=== PATIENT | female | born 1980 | race Caucasian/White ===

== ENCOUNTER 2017-09-27 09:54 | Emergency (ER) | payer MEDICAID, SELFPAY ==
[2017-09-27 09:55] VITALS: BP 171/88; PULSE 85; RESP 17; TEMP 37.2; O2SAT 97; BMI 37.9
--- NOTE | 2017-09-27 10:14 | ED.VISSUMM ---
- ER Visit Summary Date of Service: 09/27/17 Chief Complaint: Foot pain History of Present Illness: The patient is a 37 F with right foot pain. This started a week ago when she stepped in a hole. She had x-rays 2 days later which were negative. 2 days ago, she was ambulating, full weightbearing, and the pain worsened. The pain is over her lateral right foot overlying the fifth metatarsal. No other injuries or complaints. Physical Examination: Hypertensive but otherwise vitals unremarkable. Inspection appears unremarkable. Skin normal. Tender to palpation of the fifth metatarsal proximally. Ankle and tib-fib unremarkable. Test Results: X-rays of the foot were obtained. Emergency Department Course and Treatment: Patient treated with an ice pack while awaiting results. X-rays were negative. Patient was instructed to rest, ice, elevate. She will use crutches for nonweightbearing and follow-up with her family doctor. She declined any pain medication and will use Tylenol at home. Treatment Plan: As above Disposition: Discharged Impression: Right foot pain This note was generated with [employer] dictation software. It may contain incorrect words, spelling, and punctuation that were not noted in review of the chart prior to signing ED Disposition - Plan for ED Patient: Chief Complaint: Lower Extremity Injury Referrals: Paco Cowart III, MD [Primary Care Provider] -
--- NOTE | 2017-09-27 10:30 | RAD_ITS ---
STUDY: X-RAY - RIGHT FOOT CLINICAL: Right foot pain after a fall. TECHNIQUE: 3 view(s) of the foot. COMPARISON: None. FINDINGS: There are posterior and plantar calcaneal enthesophytes. Normal visualized subtalar, talonavicular, calcaneocuboid, tarsal and tarsometatarsal articulations. Normal metatarsi. Normal metatarsophalangeal joint of the great toe. Normal tibial and fibular sesamoid bones. Normal interphalangeal joint of the great toe. Normal phalanges of the great toe. Normal second through fifth metatarsophalangeal joints. Normal interphalangeal joints and phalanges of the lesser toes. The soft tissue structures are unremarkable. RAD/Foot min 3 Views IMPRESSION: Calcaneal enthesopathy. No demonstrated fracture. Electronically Signed: Stephen Camarillo MD at 10:55 EDT Tel , Service support ,
--- NOTE | 2017-09-27 11:28 | ED.DEP ---
ED Disposition - Plan for ED Patient: Chief Complaint: Lower Extremity Injury Instructions: ED Sprain Foot Referrals: Paco Cowart III, MD [Primary Care Provider] -
[2017-09-27 12:03] VITALS: BP 130/65; PULSE 101; RESP 17; O2SAT 98
== END 2017-09-27 12:04 | disposition home or self-care (01) ==
PROVIDERS: Emergency Provider Emergency Medicine; Family Provider Family Medicine; PCP Family Medicine
DX: M25.571 Pain in right ankle and joints of right foot (principal); M79.7 Fibromyalgia; Z79.899 Other long term (current) drug therapy
CPT/HCPCS: 73630; 99282

== ENCOUNTER 2018-04-16 16:08 | Emergency (ER) | payer MEDICAID, SELFPAY ==
[2018-04-16 16:09] VITALS: BP 156/98; PULSE 91; RESP 18; TEMP 36; O2SAT 99; BMI 38.8
--- NOTE | 2018-04-16 17:14 | US_ITS ---
STUDY: ABDOMINAL ULTRASOUND - RIGHT UPPER QUADRANT REASON FOR VISIT: Female, 37 years old. Intermittent upper abdominal pain x 2 months. Patient states history of gastric ulcer. TECHNIQUE: Ultrasound evaluation of the right upper quadrant was performed with real-time and static ugarte-scale imaging. TECHNICAL QUALITY: Adequate. Examination limited by bowel gas. COMPARISON: None. FINDINGS: Liver: The liver measures 22.9 cm. There is increased echogenicity consistent with fatty infiltration. The bile ducts are within normal limits. There is hepatic color flow. The direction of portal flow is hepatopetal. There is no demonstrated mass lesion. Gallbladder: Borderline distended gallbladder, measuring 11.1 cm in length. The gallbladder wall measures 2 mm. There is a negative sonographic Hamilton's sign. There is no pericholecystic fluid. There are no gallstones. Common Bile Duct (C.B.D.): The common bile duct measures mm. Pancreas: Normal size of the visualized head and body of the pancreas. The tail the pancreas was obscured. There is normal echogenicity of the pancreas. There is no demonstrated pancreatic mass or cyst. Right Kidney: Normal size of the right kidney. The right kidney measures 12.2 x 5.1 x 3.9 cm. Normal renal cortex. The right cortex measures 1.4 cm. There is no demonstrated renal mass or cyst. There is no right hydronephrosis. US/Gallbladder IMPRESSION: 1. Hepatomegaly with steatosis. 2. No demonstrated gallstones or signs of cholecystitis. 3. Normal right kidney and visualized pancreas. Electronically Signed: Dennis Arias, at 18:16 EST , Service support ,
[2018-04-16] MEDS: Mag Hydrox/Al Hydrox/Simeth 30 ML UDC PO (17:21)
[2018-04-16 18:02] LABS: Absolute Lymphocyte Count 1.57 X10^3/ul (0.83-4.51); Basophil# 0.01 X10^3/uL; Basophil% 0.2 % (0-1); Eosinophil# 0.12 X10^3/uL; Eosinophils% 1.9 % (0-5); Hematocrit 39.2 % (37-47); Lymphocyte # 1.57 X10^3/ul (4.0); Lymphocyte % 24.8 % (19-41); Mean Corp Hgb Conc 33.2 g/gl (32-36); Mean Corpuscular Hgb 28.6 pg (27.0-32.0); Mean Corpuscular Volume 86.3 fL (81-99); Monocyte# 0.56 X10^3/uL; Monocyte% 8.9 % (0-10); Neutrophil # 4.04 X10^3/uL (2.7-7.7); Neutrophil % 63.9 % (47-70); Platelet Count 152 K/mm3 (150-450); RBC Distribution Width CV 12.3 % (11.6-14.6); RBC Distribution Width SD 38.3 fl (35.1-43.9); Red Blood Count 4.54 M/mm3 (4.2-5.4); White Blood Count 6.3 K/mm3 (4.4-11.0)
[2018-04-16 18:06] LABS: ALB/GLOB Ratio 1.1 RATIO (0.9-2.4); AST(SGOT) 28 U/L (15-37); Alanine Aminotransfer ALT/SGPT 36 U/L (13-56); Albumin, Serum 3.7 g/dL (3.2-5.0); Alkaline Phosphatase 76 U/L (45-117); Anion Gap 9 (5-15); BUN 11 mg/dL (7-18); BUN/Creat Ratio 17.5 RATIO (10-20); Calcium,Total 8.4 mg/dL (8.5-10.1); Chloride 106 mmol/L (98-107); Creatinine, Serum 0.63 mg/dL (0.55-1.02); EST Glomerular Filtration Rate 112 mL/min (>60); Est Glom Filt Rate - Afr Amer 136 mL/min (>60); Estimated Creatinine Clearance 108.95 ml/min; Globulin 3.4 g/dL (2.2-4.2); Glucose 90 mg/dL (74-106); Lipase 81 U/L (73-393); Potassium 3.7 mmol/L (3.5-5.1); Protein, Total 7.1 g/dL (6.4-8.2); Sodium Level 140 mmol/L (136-145)
[2018-04-16 18:21] LABS: POSITIVE COUNT NO; POSITIVE DIFFERENTIAL NO; POSITIVE MORPHOLOGY NO
--- NOTE | 2018-04-16 18:47 | ED.VISSUMM ---
- ER Visit Summary Date of Service: 04/16/18 Chief Complaint: Abdominal pain History of Present Illness: The patient is a 37 F who notes that she has had a cough for almost 2 months. Started with a URI. She also had some epigastric pain for months. She was told it is probably an ulcer and was started on omeprazole. Several weeks ago she had 2 episodes of vomiting couple episodes of diarrhea. Things got back to normal from that standpoint. No black stool. There is been no change in her pain with food. She states she has been under a lot of stress recently. No fevers. Physical Examination: Afebrile vital signs stable Gen: Well-nourished well-developed Head: Normocephalic atraumatic Eyes: Perrl EOMI ENT: TMs clear no rhinorrhea moist mucous membranes Neck: Supple no lymphadenopathy no JVD nontender CVS: Regular rate rhythm no murmurs normal S1-S2 Respiratory: No distress clear to auscultation bilaterally chest nontender Abdomen: Soft tender to palpation in the epigastrium and right upper quadrant nondistended normal bowel sounds no masses Back: Nontender Extremity: Nontender no edema Skin: Normal color no rash Neuro: alert orientated ?3 CN II-XII intact normal strength sensation reflexes gait cerebellar Psych: Normal affect normal mood Test Results: CBC CMP lipase and gallbladder ultrasound was normal. Emergency Department Course and Treatment: Patient received a GI cocktail with temporary improvement of her symptoms. I discussed the results of her testing with her. We will continue her omeprazole and adding Carafate. She is to follow-up with primary care discussed the possibility of EGD versus barium swallow. Impression: 1. Acute abdominal pain 2. Gastritis 3. Upper respiratory infection This note was generated with [employer] dictation software. It may contain incorrect words, spelling, and punctuation that were not noted in review of the chart prior to signing ED Disposition - Plan for ED Patient: Disposition: Home or Assisted Living Instructions: ED PUD Vs Gastritis Prescriptions: Sucralfate [Carafate] 1 gm PO 4X/DAY #56 tab Referrals: Paco Cowart III, MD [Primary Care Provider] - As soon as possible
[2018-04-16 18:54] VITALS: BP 130/84; PULSE 80; RESP 12; O2SAT 98
== END 2018-04-16 18:55 | disposition home or self-care (01) ==
PROVIDERS: Emergency Provider Emergency Medicine; Family Provider Family Medicine; PCP Family Medicine
DX: R10.9 Unspecified abdominal pain (principal); K29.70 Gastritis, unspecified, without bleeding; J06.9 Acute upper respiratory infection, unspecified; K21.9 Gastro-esophageal reflux disease without esophagitis; J45.909 Unspecified asthma, uncomplicated; F32.9 Major depressive disorder, single episode, unspecified; F41.9 Anxiety disorder, unspecified; M79.7 Fibromyalgia
CPT/HCPCS: 76705; 80053; 83690; 85025; 99284; A4216

== ENCOUNTER 2019-09-16 14:05 | Emergency (ER) | payer OTHER, SELFPAY ==
[2019-09-16 14:08] VITALS: BP 154/90; PULSE 105; RESP 16; TEMP 35.9; O2SAT 98; BMI 39.1
--- NOTE | 2019-09-16 14:18 | ED.VIS.GEN ---
History of Present Illness Chief Complaint: Complaint Narrative: 39-year-old female presents with dysuria and urethral irritation. She states that she was diagnosed with UTI at urgent care. Is unsure of the medication she was on but she believes it could be Bactrim. She states that they did send a urine culture but it was contaminated. Not had fever, nausea, vomiting. No GI complaints no vaginal complaints. Past Medical History - Allergies and Home Meds Allergies/Adverse Reactions: Allergies codeine Allergy (Verified 09/16/19 14:07) Other promethazine HCl [From Phenergan] Allergy (Verified 09/16/19 14:07) Other pseudoephedrine HCl [From Sudafed] Allergy (Verified 09/16/19 14:07) Other nitrofurantoin [From Macrobid] Adverse Reaction (Verified 09/16/19 14:08) PT UNSURE OF REACTION MIGRAINE DRUGS Allergy (Uncoded 09/16/19 14:07) Other RASH Primary Care Physician: Paco Cowart III, MD [Primary Care Provider] - Prior records reviewed: Yes Surgical History: noncontributory Lives: Spouse/ Significant Other Smoking Status: Never smoker Alcohol: None Drugs: None Review of Systems All systems negative except as indicated General: Denies: Chills Eyes: Denies: Visual changes - bilaterally, Diplopia ENT: Denies: Rhinorrhea, Sore throat Cardiovascular: Denies: Chest pain, Palpitations Respiratory: Denies: Dyspnea, Cough, Dyspnea on exertion Gastrointestinal: Denies: Abdominal pain, Nausea, Vomiting, Diarrhea, Melena, Hematochezia Genitourinary: Reports: Dysuria, Hematuria. Denies: Frequency Musculoskeletal: Denies: Back pain, Extremity Pain Skin: Denies: Rash, Wounds Neurological: Denies: Headache, Weakness, Numbness Physical Exam Vital Signs/Narrative: Vital Signs Temp Pulse Resp BP Pulse Ox 09/16/19 14:08 96.7 F L 105 H 16 154/90 H 98 Inital Vital Signs reviewed: Yes General: Well nourished, No Acute Distress Head: Normocephalic Eyes: Perrl, EOMI ENT: Moist mucous membranes, No rhinorrhea Neck: Supple, Nontender Cardiovascular: Regular rate, Regular rhythm, No murmurs Respiratory: No distress, CTA bilaterally, Chest nontender Abdomen: Soft, Nontender Skin: Normal color, No rash Neurological: Alert, Oriented x3, Normal Strength Psychological: Normal affect, Normal Mood ED Disposition - Plan for ED Patient: Disposition: Home or Assisted Living Instructions: ED CYSTITIS Female Adult Prescriptions: Cephalexin [Keflex] 500 mg PO Q12 #14 cap Transmission Status: Pending to [id number] Tramadol HCl [Ultram] 50 mg PO Q8H PRN PRN #12 tab PRN Reason: Pain/Inflammation Prescription Printed Ondansetron [Zofran Odt] 4 mg PO Q8H PRN PRN #10 tab PRN Reason: Nausea Transmission Status: Pending to [id number] Referrals: Paco Cowart III, MD [Primary Care Provider] -
[2019-09-16 14:22] LABS: Bacteria 0 SEEN /hpf (None Seen); Mucous, Urine 0 SEEN /hpf (<or=2+); Squamous Epithelial Cells - UA 0 SEEN /hpf (5-10)
[2019-09-16 14:26] LABS: Color, Urine Amber (Yellow); Glucose, Dipstick Normal (Normal); Ketone-Dipstick 5 mg/dl (Negative); Leukocyte Esterase-Dipstick 500 /ul (Negative); Nitrite-Dipstick Positive (Negative); Occult Blood-Urine 250 /ul (Negative); Protein-Dipstick 100 mg/dl (Negative); Specific Gravity, Urine 1.025 (1.002-1.030); Urine Clarity Cloudy (Clear); Urine Urobilinogen 4 mg/dl (Normal)
[2019-09-16 14:28] LABS: Urine Bilirubin Dipstick 1 mg/dL (Negative)
[2019-09-16 14:41] LABS: Red Blood Cells-Urine > 100 SEEN /hpf (0-5); White Blood Cells >100 SEEN /hpf (0-5)
[2019-09-16] MEDS: Cephalexin 250 MG Capsule 500 MG PO (15:43)
[2019-09-16 15:47] VITALS: BP 154/90; PULSE 105; RESP 16; TEMP 35.9; O2SAT 98
== END 2019-09-16 15:47 | disposition home or self-care (01) ==
PROVIDERS: Emergency Provider Student in an Organized Health Care Education/Training Program; PCP Family Medicine
DX: R30.0 Dysuria (principal); Z88.1 Allergy status to other antibiotic agents; Z88.8 Allergy status to other drugs, medicaments and biological substances
CPT/HCPCS: 81001; 87086; 87088; 87186; 99283

== ENCOUNTER 2023-11-03 17:41 | Emergency (ER) | payer OTHER, MEDICAID, SELFPAY ==
[2023-11-03 17:42] VITALS: BP 132/82; PULSE 89; RESP 18; TEMP 36.6; O2SAT 99
[2023-11-03 17:44] VITALS: BMI 34.2
--- NOTE | 2023-11-03 17:57 | EX.ED.VIS.PS ---
HPI HPI - Psych History of Present Illness Chief Complaint: Mental Health PFSH PFSH Home Medications ?Medication ?Instructions ?Recorded ?Last Taken ?Type albuterol sulfate 90 mcg/actuation 1 - 2 puff inhalation Q4H PRN PRN 02/21/15 Unknown Rx aerosol inhaler (Ventolin HFA) Wheezing ##1 metformin 500 mg tablet 500 mg PO BID 02/21/15 Unknown History sertraline 100 mg tablet 200 mg PO DAILY 02/21/15 Unknown History fluticasone propionate 220 2 puff IH DAILY 04/16/18 Unknown History mcg/actuation HFA aerosol inhaler (Flovent HFA) sucralfate 1 gram tablet 1 gm PO 4X/DAY #56 tabs 04/16/18 Unknown Rx ondansetron 4 mg disintegrating 4 mg PO Q8H PRN PRN Nausea #10 tabs 09/16/19 Unknown Rx tablet amitriptyline 10 mg tablet 10 mg PO QHS 11/03/23 Unknown History buspirone .ROUTE PRN 11/03/23 Unknown History glimepiride 2 mg tablet 2 mg PO DAILY 11/03/23 Unknown History lisinopril 10 mg tablet 10 mg PO DAILY 11/03/23 Unknown History pantoprazole 40 mg tablet,delayed 40 mg PO DAILY 11/03/23 Unknown History release Allergy/AdvReac Type Severity Reaction Status Date / Time codeine Allergy Other Verified 11/03/23 17:42 promethazine HCl (From Allergy Other Verified 11/03/23 17:42 Phenergan) pseudoephedrine HCl (From Allergy Other Verified 11/03/23 17:42 Sudafed) nitrofurantoin (From AdvReac PT UNSURE Verified 11/03/23 17:42 Macrobid) OF REACTION Social History Smoking Status: Never smoker EXAM Physical Exam Const Vital Signs: 11/03/23 17:42 11/03/23 20:21 Temperature 97.9 F Temperature Source Temporal Pulse Rate 89 80 Respiratory Rate 18 18 Blood Pressure 132/82 H 134/72 H Blood Pressure Mean 98 92 Pulse Ox 99 100 Oxygen Delivery Method Room Air Room Air MDM MDM MDM Narrative Medical decision making narrative: HISTORY OF PRESENT ILLNESS: 43-year-old female presents with depression and anxiety. She notes she does not have a plan to kill herself but says I do not want to live anymore. Denies prior history of suicide attempt. Denies any drug use. Denies alcohol abuse. Endorses nausea but denies abdominal pain. No chest pain, no shortness of breath. No palpitations. No leg swelling. No bleeding diathesis. No vomiting or diarrhea. No sick contacts cough or fever noted. REVIEW OF SYSTEMS: Pertinent positives: Anxious, depressed, suicidal ideation Pertinent negatives: Depression, anxiety PHYSICAL EXAM: Nursing triage notes reviewed, Vital signs reviewed Constitutional: please see mdm HENT: MMM Eyes: Pupils equal round and reactive to light, Extraocular muscles intact Neck: No stridor, no JVD, full neck ROM Lungs: Clear to auscultation, No wheezing or rales. No increased work of breathing, no conversational dyspnea, no accessory muscle use, no nasal flaring. No respiratory distress noted Heart: Regular rate and rhythm, No murmurs, No rubs and No gallops, 2+ distal pulses (radial, femoral, posterior tibial) in all extremities Abdomen: Soft, there is no tenderness, rigidity, rebound or guarding, no obvious peritoneal signs, no palpable pulsatile abdominal masses, no auscultated abdominal bruit : No CVAT Extremities: No edema Neuro: No focal neurological deficits, cranial nerves II through XII intact, 5/5 strength in all extremities. Intact sensation to light touch in all extremities, 2+ reflexes bilateral patella tendons. Normal gait. No ataxia. Skin: No rash or lesions noted MEDICAL DECISION MAKING: Chief Complaint: Depression, anxiety External records reviewed: Medications reviewed, sertraline, no recent psychiatric encounters noted in the chart. Factors affecting care: Depression, anxiety Social determinants of health: n history of mental health disorder (depression anxiety) History obtained from others: Friend Consults: Behavioral web content & social media manager [facility] Narrative: The patient was initially hemodynamically stable, afebrile and nontoxic-appearing. Exam without focal cardiopulmonary normalities. I treat the patient initially with Atarax and Reglan for nausea. Given the patient's report of not wanting to live anymore I begin medical clearance for further behavioral health evaluation. Medical clearance as follows: CBC without leukocytosis, severe anemia, no thrombocytopenia. BMP without evidence of significant electrolyte abnormalities, no anion gap, no acute kidney injury. Urine is negative Urine tox cream negative Serum alcohol negative The patient was medically cleared. Awaiting crisis, behavioral health evaluation and possible final decision for placement. Patient be signed out to p.m. physician pending crisis evaluation and final placement. The patient and/or family, caregivers express understanding. The patient and/or family, caregivers agrees with the plan. Shared decision making: I will have a discussion with the patient and or visitors regarding risk/benefits of further testing or admission. They will be made aware of of the risk/benefits inherent in this decision they will be given the opportunity to voice understanding. Total critical care time today provided was at least 0 minutes. This excludes separately billable procedures. Critical care time (if documented) is secondary to the patient having high probability of clinically significant/life threatening deterioration in the patient's condition which required my urgent intervention. Impression: 1. Depression 2. Anxiety 3. Suicide ideation Dispo: Pending crisis evaluation and potential placement This note was generated with [employer] dictation software. It may contain incorrect words, spelling, and punctuation that were not noted in review of the chart prior to signing. Lab Data Labs: Laboratory Results - last 24 hr 11/03/23 18:00 WBC 10.5 RBC 5.19 Hgb 14.6 Hct 43.5 MCV 83.8 MCH 28.1 MCHC 33.6 RDW Std Deviation 36.4 RDW Coeff of Teresa 12.0 Plt Count 198 MPV 10.8 Immature Gran % (Auto) 0.600 Neut % (Auto) 81.6 H Lymph % (Auto) 11.9 L Rabun % (Auto) 4.4 Eos % (Auto) 1.2 Baso % (Auto) 0.3 Absolute Neuts (auto) 8.5 H Absolute Lymphs (auto) 1.24 Nucleated RBC % 0 Sodium 135 L Potassium 3.5 Chloride 102 Carbon Dioxide 24.0 Anion Gap 9 BUN 11 Creatinine 0.74 Estim Creat Clear Calc 109.66 Est GFR (MDRD) Af Amer 109 Est GFR (MDRD) Non-Af 90 BUN/Creatinine Ratio 14.8 Glucose 235 H Calcium 9.2 Serum , Qual NEGATIVE Urine Opiates Screen NEGATIVE Urine Methadone Screen NEGATIVE Ur Barbiturates Screen NEGATIVE Ur Phencyclidine Scrn NEGATIVE Ur Amphetamines Screen NEGATIVE MDMA (Ecstasy) Screen NEGATIVE U Benzodiazepines Scrn NEGATIVE Urine Cocaine Screen NEGATIVE U Cannabinoids Screen NEGATIVE Ur Drug Screen Comment Ethyl Alcohol < 3.0 POC Glucose 272 H Discharge Plan Triage Chief Complaint: Mental Health ED Provider: Nick Anglin Dx/Rx/DC Orders Prescriptions: No Action metformin 500 MG tablet 500 mg PO BID sertraline 100 MG tablet 200 mg PO DAILY albuterol sulfate [Ventolin HFA] 1 INHALER inhaler 1 - 2 puff inhalation Q4H PRN PRN (Reason: Wheezing) Qty: 1 0RF Rx Instructions: WITH SPACER fluticasone propionate [Flovent HFA] 12 GM HFA aerosol inhaler 2 puff IH DAILY Patient Comments: INHALE 1 PUFF INSTRUCTED TWICE DAILY. sucralfate 1 GM tablet 1 gm PO 4X/DAY Qty: 56 0RF ondansetron 4 MG tablet 4 mg PO Q8H PRN PRN (Reason: Nausea) Qty: 10 0RF glimepiride 2 mg tablet 2 mg PO DAILY amitriptyline 10 mg tablet 10 mg PO QHS pantoprazole 40 mg tablet,delayed release (DR/EC) 40 mg PO DAILY lisinopril 10 mg tablet 10 mg PO DAILY buspirone [BuSpar] .ROUTE PRN Primary Care Provider: Carlos Desouza Referrals: Carlos Desouza MD [Primary Care Provider] - Print Language: Taiwanese
[2023-11-03 18:20] LABS: Bedside Glucose 272 mg/dL (74-106)
--- NOTE | 2023-11-03 18:20 | ED.RN ---
PATIENT PLACED IN GOWN, BELONGINGS CLEARED FROM ROOM AND LABELED. ROOM CLEARED. SITTER AT BEDSIDE
[2023-11-03 18:30] LABS: Absolute Lymphocyte Count 1.24 X10^3/uL (0.83-4.51); Absolute Neutrophil Count 8.5 X10^3/uL (2.0-7.7); Basophil# 0.03 X10^3/uL; Basophil% 0.3 % (0-1); Eosinophil# 0.13 X10^3/uL; Eosinophils% 1.2 % (0-5); Hematocrit 43.5 % (37-47); Hemoglobin 14.6 g/dL (12.0-15.0); Lymphocyte # 1.24 X10^3/ul (0.83-4.51); Lymphocyte % 11.9 % (19-41); Mean Corp Hgb Conc 33.6 g/dL (32-36); Mean Corpuscular Hgb 28.1 pg (27.0-32.0); Mean Corpuscular Volume 83.8 fL (81-99); Mean Platelet Vol. 10.8 fl (6.2-12.0); Monocyte# 0.46 X10^3/uL; Monocyte% 4.4 % (0-10); NRBC Flagged by Analyzer 0 % (0-5); Neutrophil # 8.54 X10^3/uL (2.7-7.7); Neutrophil % 81.6 % (47-70); Platelet Count 198 K/mm3 (150-450); RBC Distribution Width SD 36.4 fl (35.1-43.9); Red Blood Count 5.19 M/mm3 (4.2-5.4); White Blood Count 10.5 K/mm3 (4.4-11.0)
[2023-11-03] MEDS: hydrOXYzine 10 MG Tablet PO (18:39)
[2023-11-03] MEDS: Metoclopramide 5 MG TABLET PO (18:39)
--- NOTE | 2023-11-03 18:41 | CM.ED ---
Social Work: curing room worker faxed over referral packet to the Crisis Team to complete psychiatric assessment for patient due to depression, anxiety and suicidal ideation. Tiffany Suh, BRIMMING MACHINE OPERATOR, HYDRODYNAMICS PROFESSOR
[2023-11-03 18:49] LABS: Internal QC Validated? YES +Cl - CLEAR BKGD; Pregnancy, Serum, hCG Quali. NEGATIVE Negative; Record Kit Lot#, Serum Preg. 772476
[2023-11-03 18:52] LABS: Anion Gap 9 (5-15); BUN 11 mg/dL (7-18); BUN/Creat Ratio 14.8 RATIO (10-20); Calcium,Total 9.2 mg/dL (8.5-10.1); Chloride 102 mmol/L (98-107); Creatinine, Serum 0.74 mg/dL (0.55-1.02); EST Glomerular Filtration Rate 90 mL/min (>60); Est Glom Filt Rate - Afr Amer 109 mL/min (>60); Estimated Creatinine Clearance 109.66 ml/min; Glucose 235 mg/dL (74-106); Potassium 3.5 mmol/L (3.5-5.1); Sodium Level 135 mmol/L (136-145)
[2023-11-03 18:55] LABS: Alcohol, Blood (Medical)-Serum < 3.0 mg/dL
[2023-11-03 18:58] LABS: Amphetamine Urine VISTA NEGATIVE (<1000 ng/mL); Barbiturate Urine VISTA NEGATIVE (< 200 ng/mL); Benzodiazepine Urine VISTA NEGATIVE (< 200 ng/mL); Cocaine Urine VISTA NEGATIVE (< 300 ng/mL); Ecstacy Urine VISTA NEGATIVE (< 500 ng/mL); Methadone Urine VISTA NEGATIVE (< 300 ng/mL); PCP Urine VISTA NEGATIVE (< 25 ng/mL); THC Urine VISTA NEGATIVE (< 50 ng/mL); Vista UDS pH Range 6
[2023-11-03] MEDS: Sucralfate 1 GM Tablet PO (20:11)
[2023-11-03] MEDS: Lisinopril 10 MG Tablet PO (20:11)
[2023-11-03] MEDS: Acetaminophen 325 MG Tablet 650 MG PO (20:11)
[2023-11-03] MEDS: Sertraline 100 MG Tablet 200 MG PO (20:11)
[2023-11-03] MEDS: Amitriptyline 10 MG Tablet PO (20:12)
[2023-11-03 20:21] VITALS: BP 134/72; PULSE 80; RESP 18; O2SAT 100
== END 2023-11-03 22:26 | disposition home or self-care (01) ==
PROVIDERS: Emergency Provider Emergency Medicine; PCP Family Medicine; Visit Provider Emergency Medicine
DX: F41.9 Anxiety disorder, unspecified (principal); F32.A Depression, unspecified; R45.851 Suicidal ideations; R11.0 Nausea; Z79.899 Other long term (current) drug therapy
CPT/HCPCS: 80048; 80307; 82077; 82962; 84703; 85025; 99285

== ENCOUNTER 2024-11-02 07:40 | Emergency (ER) | payer OTHER, MEDICAID, SELFPAY ==
[2024-11-02 07:41] VITALS: BP 163/115; PULSE 120; RESP 22; TEMP 37; O2SAT 100
--- NOTE | 2024-11-02 08:00 | EX.ED.VIS.PS ---
HPI HPI - Psych History of Present Illness Chief Complaint: Mental Health Narrative Narrative: Chief complaint and HPI: 44-year-old female with past medical history of depression/anxiety not on medication, GERD, DM, HTN who presents for evaluation of depression. Patient states she has been off any antidepressant/anxiety medicine for the past year. She states she felt that it was not working in which she took herself off. She states that she does do neuro stimulation therapy. She does not follow with a counselor or a psychiatrist. She states that her depression symptoms include tearfulness, fatigue, low energy, decreased appetite. She states she thinks it is related to her hormones as she is perimenopausal but has an IUD. Patient states she does not want to live however she has no suicidal ideation or plan to kill herself. She states I would never kill myself due to my kids. She has no homicidal ideation. She denies any visual or auditory hallucinations. Review of systems: See HPI Medications: As listed on the chart Allergies: As listed on the chart PFSH: Per chart Vital signs: As listed on the chart. Reviewed. Physical exam: Gen: A&O x3, tearful and anxious head: Normocephalic, atraumatic Eyes: No sclera icterus, conjunctiva clear, PERRL, EOMI ENT: Moist mucous membranes Neck: Trachea midline, No JVD CV: RRR, no murmurs, no peripheral edema Resp: Lungs CTA BL, no w/r/c GI: Abd soft, non-distended, non-tender, no r/r/g Musc: Full ROM, no deformity Skin: Warm, dry Neuro: Alert, oriented, grossly intact, sensation intact Psych: Cooperative, tearful and anxious PFSH PFS Medical History GERD (gastroesophageal reflux disease) Diabetes Hypertension Depression Anxiety Home Medications ?Medication ?Instructions ?Recorded ?Last Taken ?Type albuterol sulfate 90 mcg/actuation 1 - 2 puff inhalation Q4H PRN PRN 02/21/15 Unknown Rx aerosol inhaler (Ventolin HFA) Wheezing ##1 metformin 500 mg tablet 500 mg PO BID 02/21/15 Unknown History sertraline 100 mg tablet 200 mg PO DAILY 02/21/15 Unknown History fluticasone propionate 220 2 puff IH DAILY 04/16/18 Unknown History mcg/actuation HFA aerosol inhaler (Flovent HFA) sucralfate 1 gram tablet 1 gm PO 4X/DAY #56 tabs 04/16/18 Unknown Rx ondansetron 4 mg disintegrating 4 mg PO Q8H PRN PRN Nausea #10 tabs 09/16/19 Unknown Rx tablet amitriptyline 10 mg tablet 10 mg PO QHS 11/03/23 Unknown History buspirone .ROUTE PRN 11/03/23 Unknown History glimepiride 2 mg tablet 2 mg PO DAILY 11/03/23 Unknown History lisinopril 10 mg tablet 10 mg PO DAILY 11/03/23 Unknown History pantoprazole 40 mg tablet,delayed 40 mg PO DAILY 11/03/23 Unknown History release Allergy/AdvReac Type Severity Reaction Status Date / Time codeine Allergy Other Verified 11/02/24 07:42 promethazine HCl (From Allergy Other Verified 11/02/24 07:42 Phenergan) pseudoephedrine HCl (From Allergy Other Verified 11/02/24 07:42 Sudafed) nitrofurantoin (From AdvReac PT UNSURE Verified 11/02/24 07:42 Macrobid) OF REACTION Surgical History (Updated 11/02/24 @ 07:56 by Kiah Matamoros) History of appendectomy Social History Smoking Status: Never smoker EXAM Physical Exam Const Vital Signs: 11/02/24 07:41 11/02/24 09:05 Temperature 98.6 F Temperature Source Oral Pulse Rate 120 H 93 Respiratory Rate 22 H 18 Blood Pressure 163/115 H Blood Pressure Mean 131 Pulse Ox 100 98 Oxygen Delivery Method Room Air Room Air MDM MDM MDM Narrative Medical decision making narrative: 44-year-old female with past medical history of depression/anxiety not on medication, GERD, DM, HTN who presents for evaluation of depression. Patient states she has been off any antidepressant/anxiety medicine for the past year. She states she felt that it was not working in which she took herself off. She states that she does do neuro stimulation therapy. She does not follow with a counselor or a psychiatrist. She states that her depression symptoms include tearfulness, fatigue, low energy, decreased appetite. Differential diagnosis includes but is not limited to depression and anxiety. Patient does not have suicidal ideation. No homicidal ideations. No psychosis. No visual or auditory hallucinations. On presentation she is very tearful and anxious in the room. I do not think any pink slip is needed at this time. Patient's symptoms will be treated with IM Ativan. Patient states she is unsure if she would like any voluntary inpatient psychiatric facility placement. Will consult nursing home social worker as I do think patient would benefit more from outpatient resources than inpatient. On reevaluation, patient's symptoms have improved with Ativan. She is no longer tearful. Patient was evaluated by social work. Patient was safety planned. forestry worker called her PCPs office who can see her tomorrow to start her on antidepressant. Patient is comfortable with this plan. Patient stable to discharge home. Return precautions explained. Impression: 1. Depression 2. Anxiety 3. History of both Discharge Plan Triage Chief Complaint: Mental Health ED Provider: Kailash Graff Dx/Rx/DC Orders Prescriptions: No Action metformin 500 MG tablet 500 mg PO BID sertraline 100 MG tablet 200 mg PO DAILY albuterol sulfate [Ventolin HFA] 1 INHALER inhaler 1 - 2 puff inhalation Q4H PRN PRN (Reason: Wheezing) Qty: 1 0RF Rx Instructions: WITH SPACER fluticasone propionate [Flovent HFA] 12 GM HFA aerosol inhaler 2 puff IH DAILY Patient Comments: INHALE 1 PUFF INSTRUCTED TWICE DAILY. sucralfate 1 GM tablet 1 gm PO 4X/DAY Qty: 56 0RF ondansetron 4 MG tablet 4 mg PO Q8H PRN PRN (Reason: Nausea) Qty: 10 0RF glimepiride 2 mg tablet 2 mg PO DAILY amitriptyline 10 mg tablet 10 mg PO QHS pantoprazole 40 mg tablet,delayed release (DR/EC) 40 mg PO DAILY lisinopril 10 mg tablet 10 mg PO DAILY buspirone [BuSpar] .ROUTE PRN Primary Care Provider: Carlos Desouza Referrals: Carlos Desouza MD [Primary Care Provider] - Print Language: [place] Timorese
[2024-11-02 09:05] VITALS: PULSE 93; RESP 18; O2SAT 98
[2024-11-02 12:03] VITALS: BP 115/75; PULSE 79; RESP 16; TEMP 37; O2SAT 96
--- NOTE | 2024-11-02 12:05 | CM.ED ---
Social work Patient stated not knowing whether or not patient wanted to go voluntarily to inpatient psychiatric placement. After conversation with SW, patient agreed to let SW call patient's PCP office to see when the next appointment could be to get patient seen for patient's concerns. Dr Desouza, patient's PCP, could see patient tomorrow 11/03/24 at 0900 for an appointment, which SW accepted on behalf of patient. Patient had earlier stated to SW that any appointment day and time would work for patient. SW passed this information along to patient and patient's doctor. This information was also added to patient's safety plan. No further needs identified by patient at this time. Emerald De La Rosa, STRATEGIC BUSINESS DEVELOPMENT, CLOTH FINISHING RANGE BACK TENDER
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
--- NOTE | 2024-11-03 10:52 | CM.ED ---
Social work SW called patient for safety plan follow up. Patient stated attending patient's doctor appointment this morning with patient's PCP. Patient stated being prescribed Prozac and Hydroxyzine. Patient stated willingly taking this medication due to feeling as if it will help patient be able to function through the days. Patient thanked this SW for help yesterday. SW reminded patient of ability to call Crisis or return to ED should symptoms worsen; patient agreeable. No further needs identified at this time. Emerald De La Rosa, SPECIALTY FINISHING UTILITY PERSON, ROTOR CASTING MACHINE SETUP OPERATOR
== END 2024-11-02 12:10 | disposition home or self-care (01) ==
PROVIDERS: Emergency Provider Surgery; PCP Family Medicine; Visit Provider Surgery
DX: F32.A Depression, unspecified (principal); E11.9 Type 2 diabetes mellitus without complications; K21.9 Gastro-esophageal reflux disease without esophagitis; F41.9 Anxiety disorder, unspecified; I10 Essential (primary) hypertension
CPT/HCPCS: 96372; 99284

== ENCOUNTER 2024-11-04 07:30 | Emergency (ER) | payer OTHER, MEDICAID, SELFPAY ==
[2024-11-04 07:31] VITALS: BP 148/85; PULSE 101; RESP 16; TEMP 36.3; O2SAT 98; BMI 34.0
--- NOTE | 2024-11-04 07:43 | EX.ED.VIS.PS ---
HPI HPI - Psych History of Present Illness Chief Complaint: Mental Health Detail of Chief Complaint: Anxiety and depression Narrative Narrative: Patient presents to the emergency department with complaint of anxiety and depression. She states that she was here 2 days ago and seen by social work/crisis and was offered voluntary admission for psychiatric stabilization which she refused at that time. Patient states that now she believes that she does need something done. She is having a hard time sleeping and she is crying all the time. She is having thoughts of not wanting to be here. Does not have a plan on harming herself and does not think she could actually follow through with anything because she does not want to do that to her kids and family. Denies auditory or visual hallucinations. Denies recent illness. She saw her primary care physician yesterday who started her on Prozac and hydroxyzine. Patient states that her mind just will not stop. [facility] Medical History (Updated 11/04/24 @ 14:[address] Curly Carlos, DO) GERD (gastroesophageal reflux disease) Diabetes Hypertension Depression Anxiety Home Medications ?Medication ?Instructions ?Recorded ?Last Taken ?Type albuterol sulfate 90 mcg/actuation 1 - 2 puff inhalation Q4H PRN PRN 02/21/15 Unknown Rx aerosol inhaler (Ventolin HFA) Wheezing ##1 metformin 500 mg tablet 500 mg PO BID 02/21/15 Unknown History sertraline 100 mg tablet 200 mg PO DAILY 02/21/15 Unknown History fluticasone propionate 220 2 puff IH DAILY 04/16/18 Unknown History mcg/actuation HFA aerosol inhaler (Flovent HFA) sucralfate 1 gram tablet 1 gm PO 4X/DAY #56 tabs 04/16/18 Unknown Rx ondansetron 4 mg disintegrating 4 mg PO Q8H PRN PRN Nausea #10 tabs 09/16/19 Unknown Rx tablet amitriptyline 10 mg tablet 10 mg PO QHS 11/03/23 Unknown History buspirone .ROUTE PRN 11/03/23 Unknown History glimepiride 2 mg tablet 2 mg PO DAILY 11/03/23 Unknown History lisinopril 10 mg tablet 10 mg PO DAILY 11/03/23 Unknown History pantoprazole 40 mg tablet,delayed 40 mg PO DAILY 11/03/23 Unknown History release Allergy/AdvReac Type Severity Reaction Status Date / Time codeine Allergy Other Verified 11/04/24 07:33 promethazine HCl (From Allergy Other Verified 11/04/24 07:33 Phenergan) pseudoephedrine HCl (From Allergy Other Verified 11/04/24 07:33 Sudafed) nitrofurantoin (From AdvReac PT UNSURE Verified 11/04/24 07:33 Macrobid) OF REACTION Surgical History (Updated 11/02/24 @ 07:56 by Kiah Matamoros) History of appendectomy Social History Smoking Status: Never smoker ROS ROS ED Review of Systems ROS Unobtainable: other Constitutional Constitutional ED: Reports lethargy; Denies chills, fever(s), sweats or weight loss Eyes Eyes: Denies blurry vision, change in vision or diplopia ENT ENT ED: Denies rhinorrhea or sore throat Cardiovascular Cardiovascular: Denies chest pain, orthopnea or racing heartbeat Respiratory/Chest Respiratory/Chest: Denies cough, dyspnea, dyspnea on exertion, orthopnea or sputum Gastrointestinal Gastrointestinal: Denies abdominal pain, diarrhea, nausea or vomiting Genitourinary Genitourinary ED: Denies dysuria, hematuria or urinary frequency Musculoskeletal Musculoskeletal: Denies arthralgias, back pain, myalgias or neck pain Integumentary Denies abscess, Abrasions or rash Neurologic Neurologic: Denies headache(s) or weakness Psychiatric Psychiatric: Reports anxiety and depression; Denies suicidal thoughts Endocrine Endocrinology: Denies polydipsia, polyphagia or polyuria Hematologic/Lymphatic Hematologic/Lymphatic: Denies easy bleeding, easy bruising or lymphadenopathy Allergic/Immunologic Allergic/Immunologic ED: Denies mouth swelling, tongue swelling or urticaria EXAM Physical Exam Const Vital Signs: 11/04/24 07:31 11/04/24 12:45 Temperature 97.4 F L Temperature Source Oral Pulse Rate 101 H 89 Respiratory Rate 16 18 Blood Pressure 148/85 H 124/78 H Blood Pressure Mean 106 93 Pulse Ox 98 98 Oxygen Delivery Method Room Air Positive well nourished and well developed General Appearance ED: well developed and NAD HEENT Reports TM's clear and moist mucous membranes normocephalic and atraumatic; Negative for trauma or tenderness Tympanic Membrane ED: Yes TM's clear Eyes PERRL and EOMs intact bilaterally General Eye ED: Negative for pale conjunctiva or scleral icterus Neck no lymphadenopathy, supple and no JVD General: Negative for tenderness Chest Wall inspection of chest normal and palpation of chest normal Chest: Negative for tenderness Resp normal respiratory effort and clear to auscultation bilaterally Effort and Inspection: Negative for respiratory distress or pain with movement Auscultation: Negative for rhonchi, wheezes or diminished lung sounds Cardio regular rate, regular rhythm, S1 normal heart sound, S2 normal heart sound and no murmurs Peripheral Pulses: pulses 2+ throughout GI normal to inspection, nondistended, normoactive bowel sounds, soft to palpation, non-tender, non-distended and no masses Back/Spine no CVA tenderness and no thoracic nor lumbar tenderness Extremity normal to inspection General Extremety ED: Negative for edema General Extremity: Negative for edema Neuro oriented x3, CN's II-XII intact bilaterally, no sensory deficits noted and gait normal Sensorium / Orientation: awake, alert, oriented to person, oriented to place and oriented to time Motor Exam: strength 5/5 throughout and strength abnormal Psych mental status grossly normal, denies hallucinations and denies homicidal ideation Psych Narrative: Tearful, anxious Skin no rashes or lesions noted and no wounds MDM MDM MDM Narrative Medical decision making narrative: Patient presents with anxiety and depression. Would voluntarily like to be admitted to psychiatric facility for stabilization. Initially seen by community mental health social worker and arrangements were made to [place]. Patient states that she did some research on the facility and is concerned about it and that it did not get good reviews and would like us to try to find another facility for her to go to. We had community mental health social worker back in the room to speak with her. While in the department patient received Ativan and had good symptom improvement with that. Care of patient turned over to evening physician awaiting further assessment by social work and attempted placement to another psychiatric facility. Lab Data Attestation: I reviewed the patient's lab results. Labs: Laboratory Results - last 24 hr 11/04/24 11/04/24 08:03 09:10 WBC 8.4 RBC 4.88 Hgb 14.3 Hct 41.4 MCV 84.8 MCH 29.3 MCHC 34.5 RDW Std Deviation 35.1 RDW Coeff of Teresa 11.5 L Plt Count 217 MPV 11.1 Immature Gran % (Auto) 0.400 Neut % (Auto) 71.2 H Lymph % (Auto) 22.2 Henderson % (Auto) 5.6 Eos % (Auto) 0.2 Baso % (Auto) 0.4 Absolute Neuts (auto) 6.0 Absolute Lymphs (auto) 1.87 Nucleated RBC % 0 Sodium 139 Potassium 3.9 Chloride 105 Carbon Dioxide 21.3 Anion Gap 13 BUN 9 Creatinine 0.57 L Estim Creat Clear Calc 135.30 Est GFR (MDRD) Non-Af 114 BUN/Creatinine Ratio 16.3 Glucose 169 H Calcium 9.1 Serum , Qual NEGATIVE Urine Opiates Screen NEGATIVE U Buprenorphine Qual NEGATIVE Ur Oxycodone Screen NEGATIVE Urine Methadone Screen NEGATIVE Urine Fentanyl Screen NEGATIVE Ur Barbiturates Screen NEGATIVE Ur Phencyclidine Scrn NEGATIVE Ur Amphetamines Screen NEGATIVE U Benzodiazepines Scrn NEGATIVE Urine Cocaine Screen NEGATIVE U Cannabinoids Screen PRESUMPTIVE POSITIVE Ethyl Alcohol < 10.1 Discharge Plan Triage Chief Complaint: Mental Health ED Provider: Curly Carlos Dx/Rx/DC Orders Clinical Impression: Anxiety, Depression Prescriptions: No Action metformin 500 MG tablet 500 mg PO BID sertraline 100 MG tablet 200 mg PO DAILY albuterol sulfate [Ventolin HFA] 1 INHALER inhaler 1 - 2 puff inhalation Q4H PRN PRN (Reason: Wheezing) Qty: 1 0RF Rx Instructions: WITH SPACER fluticasone propionate [Flovent HFA] 12 GM HFA aerosol inhaler 2 puff IH DAILY Patient Comments: INHALE 1 PUFF INSTRUCTED TWICE DAILY. sucralfate 1 GM tablet 1 gm PO 4X/DAY Qty: 56 0RF ondansetron 4 MG tablet 4 mg PO Q8H PRN PRN (Reason: Nausea) Qty: 10 0RF glimepiride 2 mg tablet 2 mg PO DAILY amitriptyline 10 mg tablet 10 mg PO QHS pantoprazole 40 mg tablet,delayed release (DR/EC) 40 mg PO DAILY lisinopril 10 mg tablet 10 mg PO DAILY buspirone [BuSpar] .ROUTE PRN Primary Care Provider: Carlos Desouza Referrals: Carlos Desouza MD [Primary Care Provider, Family Practice] Print Language: [place]
--- NOTE | 2024-11-04 08:07 | ED.RN ---
pt. gave her mother her wallet to take home. All other belongings placed in bins.
--- NOTE | 2024-11-04 08:10 | ED.RN ---
Dr. Carlos confirmed pt. does not need a sitter.
[2024-11-04 08:15] LABS: Hematocrit 41.4 % (37-47); Hemoglobin 14.3 g/dL (12.0-15.0); Immature Granulocytes Count 0.030 X10^3/uL (0.0-0.0); Mean Corp Hgb Conc 34.5 g/dL (32-36); Mean Corpuscular Volume 84.8 fL (81-99); Mean Platelet Vol. 11.1 fl (6.2-12.0); NRBC Flagged by Analyzer 0 % (0-5); Platelet Count 217 K/mm3 (150-450); RBC Distribution Width CV 11.5 % (11.6-14.6); RBC Distribution Width SD 35.1 fl (35.1-43.9); Red Blood Count 4.88 M/mm3 (4.2-5.4); White Blood Count 8.4 K/mm3 (4.4-11.0)
[2024-11-04 08:37] LABS: Internal QC Validated? YES +Cl - CLEAR BKGD; Pregnancy, Serum, hCG Quali. NEGATIVE Negative
[2024-11-04 08:38] LABS: Record Kit Lot#, Serum Preg. 0000964736
[2024-11-04 08:42] LABS: Alcohol, Blood (Medical)-Serum < 10.1 mg/dL (<=10.0)
[2024-11-04 08:45] LABS: Anion Gap 13 (5-15); BUN 9 mg/dL (4-19); BUN/Creat Ratio 16.3 RATIO (10-20); Calcium,Total 9.1 mg/dL (7.6-11.0); Carbon Dioxide 21.3 mmol/L (21.0-32.0); Chloride 105 mmol/L (98-108); Estimated Creatinine Clearance 135.30 ml/min (50-250); Glucose 169 mg/dL (70-99); Potassium 3.9 mmol/L (3.3-5.1)
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
[2024-11-04 09:59] LABS: Barbiturate Urine NEGATIVE (< 200 ng/mL); Benzodiazepine Urine NEGATIVE (< 200 ng/mL); PCP Urine NEGATIVE (< 25 ng/mL); THC Urine PRESUMPTIVE POSITIVE (< 50 ng/mL)
--- NOTE | 2024-11-04 10:38 | CM.ED ---
Social work After SW assessment, patient's mother Jeannie asked if patient could be transported via private car to wherever patient would be going. Jeannie stated willingness to do so rather than waiting on an ambulance; patient in agreement. SW checked with doctor who was agreeable due to patient being voluntary. Patient stated patient's children, 17 and 15 years old, will be cared for by patient's mother and ex- during patient's inpatient stay. Patient's mother stated the children would be cared for well. 1005: Called [facility] (ph: ) and beds available. Explained that this patient was voluntary, so [facility] faxed voluntary form to this SW to be added to referral packet. Patient signed voluntary form that was included and packet faxed (f: ). 1200: Called [facility] back and had to leave a VM regarding patient's status. SW also provided ED front desk auxiliary number to call if unable to reach SW. Patient and patient's mother updated on status. Patient expressed concern about going to [facility]. SW expressed needing to hand this patient's case off to Crisis due to shift ending if not hearing back before long. 2075: Called [facility] and spoke with Tan (ph: [phone]). Provided handoff and faxed referral packet (f: ). Emerald De La Rosa, SIMULATION ENGINEER, SENIOR J2EE DEVELOPER
[2024-11-04 12:45] VITALS: BP 124/78; PULSE 89; RESP 18; O2SAT 98
--- NOTE | 2024-11-04 14:11 | PCA ---
CALLED [facility] @ [phone] REACHED OUT TO [facility]
--- NOTE | 2024-11-04 15:29 | ED.RN ---
Ruby out of room after speaking with patient. States we will continue to work toward [facility].
[2024-11-04 16:00] VITALS: BP 126/58; PULSE 78; RESP 12; TEMP 36.6; O2SAT 97
--- NOTE | 2024-11-04 19:29 | ED.RN ---
Patient informed we are still at a stand still. Maninder from crisis notified patient requesting to leave tonight and be admitted tomorrow at [facility]. Patient understood. patient states I am just worried about my ativan. Pt states Dr. Wilson said she would give me 2 ativan to go home with but the pharmacy will be closed by then. This RN states please do not worry about that. We have an after hours pharmacy here if you need prescriptions filled. Pt states oh, ok. Thank you. That makes me feel better! Pt states she has no further questions at this time.
[2024-11-04 20:00] VITALS: BP 125/82; PULSE 78; O2SAT 99
--- NOTE | 2024-11-04 20:24 | ED.RN ---
Per Dr. Wilson, patient is ok to have her personal belongings back. pt given information for [facility] direct admission.
[2024-11-04 21:03] VITALS: BP 125/82; PULSE 78; RESP 12; TEMP 36.6; O2SAT 99
== END 2024-11-04 21:04 | disposition home or self-care (01) ==
PROVIDERS: Emergency Provider Emergency Medicine; PCP Family Medicine; Visit Provider Emergency Medicine
DX: F41.9 Anxiety disorder, unspecified (principal); E11.9 Type 2 diabetes mellitus without complications; I10 Essential (primary) hypertension; F32.A Depression, unspecified; K21.9 Gastro-esophageal reflux disease without esophagitis
CPT/HCPCS: 80048; 80307; 82077; 84703; 85025; 99282

== ENCOUNTER 2024-11-12 10:15 | Emergency (ER) | payer OTHER, MEDICAID, SELFPAY ==
[2024-11-12 10:15] VITALS: BP 135/93; PULSE 112; RESP 14; TEMP 36.1; O2SAT 98; BMI 35.2
--- NOTE | 2024-11-12 11:17 | EX.ED.DYSGE1 ---
HPI History of Present Illness Chief Complaint: Anxiety Informant: patient Onset/Context/Timing Onset: Days (6) Context: Gradual Onset Timing: Continuous Quality: Insomnia, fatigue Location: Generalized Worsened by: Nothing Relieved by: Nothing Narrative Narrative: Patient presents with insomnia for the past 6 days. Patient states she feels fatigued but is unable to sleep. Patient states she is starting to feel anxious. Patient denies any suicidal or homicidal ideations. Patient states she is having some nausea and vomiting but is only having dry heaves. Patient denies any hematemesis or coffee-ground emesis. Patient denies any diarrhea, melena, or hematochezia. Patient states she was recently started on anxiety and depression medications but these did not seem to be helping. Patient denies any fevers or chills. [facility] Medical History GERD (gastroesophageal reflux disease) Diabetes Hypertension Depression Anxiety Home Medications ?Medication ?Instructions ?Recorded ?Last Taken ?Type albuterol sulfate 90 mcg/actuation 1 - 2 puff inhalation Q4H PRN PRN 02/21/15 Unknown Rx aerosol inhaler (Ventolin HFA) Wheezing ##1 lisinopril 10 mg tablet 10 mg PO DAILY 11/03/23 11/03/24 History fluoxetine 20 mg capsule 20 mg PO QPM 11/04/24 Unknown History lorazepam 1 mg tablet (Ativan) 1 mg PO DAILY PRN anxiety #1 TAB 11/04/24 Unknown Rx Allergy/AdvReac Type Severity Reaction Status Date / Time codeine Allergy Other Verified 11/12/24 10:16 promethazine HCl (From Allergy Other Verified 11/12/24 10:16 Phenergan) pseudoephedrine HCl (From Allergy Other Verified 11/12/24 10:16 Sudafed) nitrofurantoin (From AdvReac PT UNSURE Verified 11/12/24 10:16 Macrobid) OF REACTION Surgical History History of appendectomy Social History Smoking Status: Never smoker ROS ROS ED Constitutional Constitutional ED: Denies chills or fever(s) Eyes Eyes: Denies blurry vision or change in vision ENT ENT ED: Denies rhinorrhea or sore throat Cardiovascular Cardiovascular: Denies chest pain or palpitations Respiratory/Chest Respiratory/Chest: Denies cough or dyspnea Gastrointestinal Gastrointestinal: Denies nausea or vomiting Genitourinary Genitourinary ED: Denies dysuria or hematuria Musculoskeletal Musculoskeletal: Denies back pain or neck pain Integumentary Denies abscess or rash Neurologic Neurologic: Reports headache(s); Denies weakness Psychiatric Psychiatric: Reports anxiety; Denies suicidal ideation or suicidal thoughts Allergic/Immunologic Allergic/Immunologic ED: Denies mouth swelling or urticaria EXAM Physical Exam Const Vital Signs: 11/12/24 10:15 11/12/24 12:05 Temperature 97 F L Temperature Source Temporal Pulse Rate 112 H 83 Respiratory Rate 14 19 H Blood Pressure 135/93 H 139/91 H Blood Pressure Mean 107 107 Pulse Ox 98 99 Oxygen Delivery Method Room Air Room Air Positive well nourished and well developed General Appearance ED: well developed and NAD HEENT Reports moist mucous membranes Neck supple and no JVD Resp normal respiratory effort and clear to auscultation bilaterally Cardio regular rate and regular rhythm GI non-tender and non-distended Palpation: soft Neuro oriented x3, CN's II-XII intact bilaterally and no sensory deficits noted Sensorium / Orientation: alert Motor Exam: strength 5/5 throughout Psych mental status grossly normal Mood & Affect: anxious MDM MDM MDM Narrative Medical decision making narrative: Differential diagnosis includes but is not limited to anxiety, electrolyte abnormality, urinary tract infection, , cholecystitis, cholelithiasis, hepatitis, viral illness, and dehydration. CBC will be obtained to assess for leukocytosis and anemia. Comprehensive metabolic profile will be obtained to assess for hepatic function, renal function, and electrolyte abnormality. Urinalysis will be obtained to assess for urinary tract infection and hematuria. Serum hCG will be obtained to assess for . COVID-19, influenza, and RSV PCR will be obtained to assess for viral illness. History & Record Review Additional record(s) reviewed:: Prior ED visit and Prior labs Lab Data Attestation: I reviewed the patient's lab results. Lab results narrative: CBC was reviewed. There is a mild leukocytosis of 12.7. Hemoglobin was slightly elevated at 16.9. The remainder is within normal limits. Comprehensive metabolic profile was reviewed and was within normal limits. Serum hCG was reviewed and was negative. Urinalysis was reviewed. There is no evidence of urinary tract infection or hematuria. Labs: Laboratory Results - last 24 hr 11/12/24 11:48 WBC 12.7 H RBC 5.64 H Hgb 16.9 H Hct 47.0 MCV 83.3 MCH 30.0 MCHC 36.0 RDW Std Deviation 34.3 L RDW Coeff of Teresa 11.4 L Plt Count 285 MPV 10.8 Immature Gran % (Auto) 0.500 Neut % (Auto) 69.7 Lymph % (Auto) 22.8 [place] % (Auto) 6.5 Eos % (Auto) 0.2 Baso % (Auto) 0.3 Absolute Neuts (auto) 8.8 H Absolute Lymphs (auto) 2.89 Nucleated RBC % 0 Sodium 138 Potassium 3.9 Chloride 102 Carbon Dioxide 23.0 Anion Gap 13 BUN 8 Creatinine 0.57 L Estim Creat Clear Calc 137.77 Est GFR (MDRD) Non-Af 114 BUN/Creatinine Ratio 14.0 Glucose 146 H Calcium 9.6 Total Bilirubin 0.69 AST 17 ALT 23 Alkaline Phosphatase 98 Total Protein 7.7 Albumin 4.7 Globulin 3.0 Albumin/Globulin Ratio 1.5 Serum , Qual NEGATIVE Urine Color Yellow Urine Clarity Sl. Cloudy Urine pH 7.0 Ur Specific [place] 1.010 Urine Protein 15 H Urine Glucose (UA) Normal Urine Ketones Negative Urine Occult Blood Negative Urine Nitrite Negative Urine Bilirubin Negative Urine Urobilinogen Normal Ur Leukocyte Esterase 25 H Urine RBC 0 SEEN Urine WBC 0-5 SEEN Ur Squamous Epith Cells 0-5 SEEN Urine Bacteria 2+ Urine Mucus 0 SEEN Treatment and Re-Evaluation :: Patient was given IV fluids, Reglan, and Benadryl. Patient was feeling better on reevaluation. Patient was sleeping. Patient was instructed to use [id number] Benadryl at nighttime to help with sleep. Patient was instructed to follow-up with her primary care physician in 5 to 7 days. Patient was instructed to return if worse in any way. Patient understood and was agreeable with the plan. All questions were answered. Discharge Plan Triage Chief Complaint: Anxiety ED Provider: Jung Pal Dx/Rx/DC Orders Clinical Impression: Insomnia, Anxiety Instructions: ED Insomnia Prescriptions: No Action albuterol sulfate [Ventolin HFA] 1 INHALER inhaler 1 - 2 puff inhalation Q4H PRN PRN (Reason: Wheezing) Qty: 1 0RF Rx Instructions: WITH SPACER lisinopril 10 mg tablet 10 mg PO DAILY fluoxetine 20 mg capsule 20 mg PO QPM lorazepam [Ativan] 1 mg tablet 1 mg PO DAILY PRN (Reason: anxiety) Qty: 1 0RF Primary Care Provider: Carlos Desouza Referrals: Carlos Desouza MD [Primary Care Provider, Family Practice] - 5-7 Days Print Language: Macedonian Disposition Disposition: Home, Self Care
[2024-11-12] MEDS: 0.9% Normal Saline (1000mL) 1,000 ML 1000 ML IV (11:52)
[2024-11-12] MEDS: DiphenhydrAMINE 50 MG/ML Syringe 25 MG IV (11:52)
[2024-11-12 12:04] LABS: Mucous, Urine 0 SEEN /hpf (<or=2+); Red Blood Cells-Urine 0 SEEN /hpf (0-5)
[2024-11-12 12:05] VITALS: BP 139/91; PULSE 83; RESP 19; O2SAT 99
[2024-11-12 12:10] LABS: Hematocrit 47.0 % (37-47); Hemoglobin 16.9 g/dL (12.0-15.0); Immature Granulocytes Count 0.060 X10^3/uL (0.0-0.0); Mean Corp Hgb Conc 36.0 g/dL (32-36); Mean Corpuscular Volume 83.3 fL (81-99); Mean Platelet Vol. 10.8 fl (6.2-12.0); NRBC Flagged by Analyzer 0 % (0-5); Platelet Count 285 K/mm3 (150-450); RBC Distribution Width CV 11.4 % (11.6-14.6); RBC Distribution Width SD 34.3 fl (35.1-43.9); Red Blood Count 5.64 M/mm3 (4.2-5.4); White Blood Count 12.7 K/mm3 (4.4-11.0)
[2024-11-12 12:11] LABS: Color, Urine Yellow (Yellow); Glucose, Dipstick Normal (Normal); Ketone-Dipstick Negative (Negative); Leukocyte Esterase-Dipstick 25 /ul (Negative); Nitrite-Dipstick Negative (Negative); Occult Blood-Urine Negative /ul (Negative); Protein-Dipstick 15 mg/dl (Negative); Specific Gravity, Urine 1.010 (1.002-1.030); Urine Bilirubin Dipstick Negative (Negative)
[2024-11-12 12:17] LABS: Squamous Epithelial Cells - UA 0-5 SEEN /hpf (5-10)
[2024-11-12 12:37] LABS: AST(SGOT) 17 U/L (<=31); Alanine Aminotransfer ALT/SGPT 23 U/L (<=34); Albumin, Serum 4.7 g/dL (3.5-5.0); Alkaline Phosphatase 98 U/L (35-104); Anion Gap 13 (5-15); BUN 8 mg/dL (4-19); BUN/Creat Ratio 14.0 RATIO (10-20); Calcium,Total 9.6 mg/dL (7.6-11.0); Carbon Dioxide 23.0 mmol/L (21.0-32.0); Chloride 102 mmol/L (98-108); Estimated Creatinine Clearance 137.77 ml/min (50-250); Globulin 3.0 g/dL (2.2-4.2); Glucose 146 mg/dL (70-99); Potassium 3.9 mmol/L (3.3-5.1)
[2024-11-12 12:42] LABS: Internal QC Validated? YES +Cl - CLEAR BKGD; Pregnancy, Serum, hCG Quali. NEGATIVE Negative; Record Kit Lot#, Serum Preg. 0000964736
== END 2024-11-12 13:58 | disposition home or self-care (01) ==
PROVIDERS: Emergency Provider Emergency Medicine; PCP Family Medicine; Visit Provider Emergency Medicine
DX: G47.00 Insomnia, unspecified (principal); E11.9 Type 2 diabetes mellitus without complications; F41.9 Anxiety disorder, unspecified; I10 Essential (primary) hypertension; R51.9 Headache, unspecified
CPT/HCPCS: 80053; 81001; 84703; 85025; 87631; 96361; 96374; 96375; 99284; A4216

== ENCOUNTER → 2024-11-25 | Outpatient (CLI) | payer OTHER, MEDICAID, SELFPAY ==
[2024-11-25 12:17] LABS: Hematocrit 43.5 % (37-47); Hemoglobin 14.9 g/dL (12.0-15.0); Immature Granulocytes Count 0.030 X10^3/uL (0.0-0.0); Mean Corp Hgb Conc 34.3 g/dL (32-36); Mean Corpuscular Volume 84.3 fL (81-99); Mean Platelet Vol. 12.5 fl (6.2-12.0); NRBC Flagged by Analyzer 0 % (0-5); Platelet Count 193 K/mm3 (150-450); RBC Distribution Width CV 11.4 % (11.6-14.6); RBC Distribution Width SD 34.8 fl (35.1-43.9); Red Blood Count 5.16 M/mm3 (4.2-5.4); White Blood Count 9.9 K/mm3 (4.4-11.0)
[2024-11-25 13:10] LABS: AST(SGOT) 19 U/L (<=31); Alanine Aminotransfer ALT/SGPT 28 U/L (<=34); Albumin, Serum 4.6 g/dL (3.5-5.0); Alkaline Phosphatase 75 U/L (35-104); Anion Gap 14 (5-15); BUN 10 mg/dL (4-19); BUN/Creat Ratio 16.5 RATIO (10-20); Calcium,Total 9.6 mg/dL (7.6-11.0); Carbon Dioxide 22.3 mmol/L (21.0-32.0); Chloride 102 mmol/L (98-108); Ferritin 330 ng/mL (22-378); Follicle Stimulating Hormone 4.5 mIU/mL; Globulin 2.8 g/dL (2.2-4.2); Glucose 147 mg/dL (70-99); Iron 116 ug/dL (50-170); Potassium 4.1 mmol/L (3.3-5.1); T3 Total - Triiodothyronine 1.25 ng/mL (0.80-2.00); T4 Total, Thyroxin 9.1 ug/dL (4.8-13.9); Vitamin D,25 Hydroxy 28.1 ng/mL (30-100)
[2024-11-26 04:07] LABS: PROGESTERONE 0.6 ng/mL (.)
[2024-11-30 00:07] LABS: Estrogen, Total, Serum 241 pg/mL (.)
== END | disposition home or self-care (01) ==
LOC: VSLAB 10:28
PROVIDERS: PCP Family Medicine; Visit Provider Nurse Practitioner
DX: F41.1 Generalized anxiety disorder (principal)
CPT/HCPCS: 36415; 80053; 82306; 82672; 82728; 83001; 83002; 83036; 83540; 84144; 84403; 84436; 84443; 84480; 85025

== ENCOUNTER 2024-12-01 08:00 | Outpatient (RCR) | payer MEDICAID, SELFPAY ==
--- NOTE | 2024-12-01 09:00 | BH.SGPN.GN ---
Behaviors/Verbalizations/Mental Status: [] Eye contact is good. Motor activity is appropriate. Appearance is casual. Speech is Appropriate. Mood is anxious and depressed. Affect is congruent. Thoughts are linear and logical. No evidence of psychosis. Tearful Client Response/Progress/Benefit: [] Pt participated when prompted. Attentive. This was pt?s first day in IOP level of care. Tearful as she discussed reasons for entering IOP. Reports ?severe? anxiety stating ? It?s the lowest I?ve ever been?. Reports being ?scared? her anxiety won?t ever improve. ? I?m ready? to make changes. No progress noted. Group emphasized with struggles and provided feedback/suggestions for her first day which was beneficial. Will continue in IOP to prevent decompensation, decrease anxiety, increase healthy coping, and improve functioning. Narrative Note: []
--- NOTE | 2024-12-01 09:34 | BH.COMM_ITS ---
Communication Note Communication with Client Communication Note: Met with pt to complete initial paperwork. Discussed case with Dr. Bangura and pt will be admitted to [facility] tx with a diagnosis of F41.1 ROBERT.
--- NOTE | 2024-12-01 09:34 | BH.COMM ---
Communication Note Communication with Client Communication Note: Met with pt to complete initial paperwork. Discussed case with Dr. Bangura and pt will be admitted to [facility] tx with a diagnosis of F41.1 ROBERT.
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
--- NOTE | 2024-12-01 09:35 | BH.MTP_ITS ---
Master Treatment Plan Patient Information Program Physician:: Dr. Brody Bangura Primary Therapist:: Naye LIANG Psychiatric Diagnoses Psychiatric Diagnoses:: ROBERT; MDD, recurrent, severe, without psychosis Diagnosis Code(s):: F 41.1 Estimated LOS Estimated LOS (in weeks):: 6 Problem/Goal #1 Problem/Goal #1 Stated Goal:: Will reduce anxiety and panic symptoms through increasing emotional regulation and distress tolerance skills Description of Barriers: Pt recently lost her job as pt's anxiety became too severe and was impacting pt's ability to function. Pt is anxious about losing her housing because of job loss and tight finances. Pt has a history to non-responsiveness to medications. Functional Impact: Pt is a 44-year-old woman with a history of ROBERT and MDD. Pt has one previous psychiatric admission to [facility] from 11/04/24-11/09/24 due to significant anxiety and thoughts of . Pt was referred to [facility] tx due to her worsening anxiety, depression, and functioning. At admission to [facility], pt experienced constant anxiety, poor appetite, low energy, lack of motivation, panic, avoidance, crying spells, worthlessness, hopelessness, and poor sleep. Pt reports her anxiety is so high she is exhausted but I can't turn off my brain to sleep. Pt is not able to complete her ADLs and she is fearful of being at home. Pt's symptoms are impacting her overall functioning and relationships. Goal Relevant Strengths/Supports: Pt is established with outpatient psychiatry and pt has close supports in her life who are helping pt. Objectives Objective #1: Stated Objective: Pt will increase ability to manage stressors and anxiety by gaining 2-3 distress tolerance skills. Interventions: Through group and individual therapy, pt will learn various coping skills to help manage stress and anxiety. Therapist will utilize DBT distress tolerance skills to increase awareness and give pt tools to more effectively manage anxiety. Therapist will provide psychoeducation on emotional regulation and help pt identify unhealthy coping skills he wants to change. Discharge Criteria: Pt will have accomplished this goal when can report improved ability to manage stressors and identify at least 2 distress tolerance skills. Target Date: 01/12/25 Review Date: 12/22/24 Status: open Objective #2: Stated Objective: Pt will identify 2-3 anxiety and panic triggers and 2 coping skills to use when feeling anxious or overwhelmed to manage anxiety as shown by reducing DSM-5 scores for anxiety Interventions: Therapist will provide education on anxiety, avoidance behaviors, and maintenance cycles. Therapist will help pt explore personal symptoms and warning signs of anxiety and irritability. Therapist will teach pt coping skills to improve emotional regulation, mindfulness, and distress tolerance to help pt cope with anxiety in the moment. Discharge Criteria: Pt will have accomplished this goal when he can identify at least 2 triggers and report using 2 coping skills to manage anxiety and irritability. Additionally, pt will have accomplished this goal AEB reduction of DSM-5 scores for anxiety. Target Date: 01/12/25 Review Date: 12/22/24 Status: open Problem/Goal #2 Problem/Goal #2 Stated Goal:: Pt will decrease depressive symptoms, inappropriate guilt, worthlessness, and negative self-talk. Description of Barriers: Pt recently lost her job as pt's anxiety became too severe and was impacting pt's ability to function. Pt is anxious about losing her housing because of job loss and tight finances. Pt has a history to non- responsiveness to medications. Functional Impact: Pt is a 44-year-old woman with a history of ROBERT and MDD. Pt has one previous psychiatric admission to [facility] from 11/04/24-11/09/24 due to significant anxiety and thoughts of . Pt was referred to [facility] tx due to her worsening anxiety, depression, and functioning. At admission to [facility], pt experienced constant anxiety, poor appetite, low energy, lack of motivation, panic, avoidance, crying spells, worthlessness, hopelessness, and poor sleep. Pt reports her anxiety is so high she is exhausted but I can't turn off my brain to sleep. Pt is not able to complete her ADLs and she is fearful of being at home. Pt's symptoms are impacting her overall functioning and relationships. Goal Relevant Strengths/Supports: Pt is established with outpatient psychiatry and pt has close supports in her life who are helping pt. Objectives Objective #1: Stated Objective: Pt will learn and utilize 2-3 healthy coping strategies to better manage depressive symptoms as shown by a decrease of DMS-5 symptoms for depression. Interventions: Through group and individual sessions, therapist will help pt identify triggers and warning signs of depression and guilt including emotional, physical, and behavioral changes. Therapist will teach pt various coping skills to manage symptoms and give pt tangible resources to use to regulate emotions. Therapist will use cognitive restructuring techniques and help pt gain awareness of negative thoughts that reinforce guilt and depression. Therapist will provide psychoeducation on maintenance cycles and help pt learn ways to break unhealthy maintenance cycles. Therapist will help pt incorporate behavioral activation and assist pt in setting SMART goals. Discharge Criteria: Pt will have met this goal when can report learning and using at least 2 coping skills to manage depressive symptoms and reduce isolation. Additionally, pt will have met this goal when pt's DSM-5 scores for depression decrease. Target Date: 01/12/25 Review Date: 12/22/24 Status: open
--- NOTE | 2024-12-01 10:10 | BH.SGPN.GN ---
Behaviors/Verbalizations/Mental Status: [] Pt alert and oriented, casually dressed and groomed. Eye contact good. Motor activity appropriate. Speech within normal limits. Affect congruent, mood anxious. Thoughts linear, logical, no signs of hallucinations or delusions. Client Response/Progress/Benefit: [] Pt responded well to session AEB listening attentively to others and taking notes. Limited engagement. Attentive as group provided examples of types of support (professional, pets, hobbies, community, spouse, spirituality, co-workers, family, etc) as well as benefits of having social support, including: validation, get perspective, and accountability. Pt also was attentive during group discussions regarding the barriers to accessing support and pt?s barriers included; isolation, overconfidence, reliance on unhealthy coping, and self-sabotage. Pt participated in experiential activity illustrating the impact communication, boundaries, and patience play in creating healthy support systems. Pt appeared to benefit from increased knowledge of the benefits of social support and greater self-awareness. Pt to continue IOP to prevent decompensation, stabilize anxious, increase healthy coping, and improve functioning. Narrative Note: []
--- NOTE | 2024-12-01 11:10 | BH.SGPN.GN ---
Behaviors/Verbalizations/Mental Status: []Client alert and oriented, casually dressed and groomed. Eye contact good. Motor activity appropriate. Speech within normal limits. Affect congruent, mood anxious and depressed. Thoughts linear, logical, no signs of hallucinations or delusions. Client Response/Progress/Benefit: [] Pt participated throughout AEB contributing to discussion, providing examples, and taking notes. Pt provided input during discussion on the types of support our supports can provide. Pt able to identify current support system and barriers that get in the way of using supports. Pt reported after identifying what type of supports pt receives, pt gained awareness that pt could benefit from more social and emotional support by continuing to attend IOP tx. Pt seemed to benefit from identifying the type of support pt needs to work on improving. Pt recommended to continue IOP tx to promote increase positive self-talk, improve mood stability, and prevent decompensation. Narrative Note: []
--- NOTE | 2024-12-02 09:00 | BH.SGPN.GN ---
Behaviors/Verbalizations/Mental Status: [] Pt alert and oriented, neatly dressed and groomed. Eye contact good. Motor activity appropriate. Speech within normal limits. Affect constricted, mood anxious and depressed. Thoughts linear, logical, no signs of hallucinations or delusions. Reviewed pt?s symptom tracker, no risk for suicidal ideation, plan, or intent 12/02/24. Client Response/Progress/Benefit: []Pt was an active participant in group discussions. Attentive. Able to identify mental health wins including ?I?m here? and pt received a lot of positive encouragement from peers. Pt's stressor today is ?I lost my job and I can?t go out and get one right now like this.? The group offered pt suggests managing this stressor and emotional support which pt reported was helpful. Pt able to give herself credit for choosing to work on her mental health despite these stressors. Pt is feeling ?terrified? this morning. Pt receptive to feedback from peers. Benefited from group support, encouragement, and feedback. Progress noted. Will continue IOP tx to prevent decompensation, improve daily functioning, and gain healthy coping skills. ? Narrative Note: []
--- NOTE | 2024-12-02 10:10 | BH.SGPN.GN ---
Behaviors/Verbalizations/Mental Status: [] Pt alert and oriented, casual appearance, eye contact fair. Motor activity appropriate. Speech within normal limits. Affect congruent. Mood anxious. Thoughts linear, logical, no signs of hallucinations or delusions. Client Response/Progress/Benefit: [] Pt was an active participant in group discussions on defining conflict (internal/external) and possible benefits to conflict. Attentive during psychoeducation on conflict styles (avoidant, accommodating, competing, cooperative) and engaged during group discussion in which the group identified when it is beneficial to use conflict styles and pitfalls of each conflict style. Pt was an active participant in small group exercise in which each group was given a scenario and a conflict resolution technique had to be utilized. Pt identified with the avoidant style of conflict and was able to make connections to how that could impact her mental health. Benefited from increased awareness of the impact of conflict styles. Will continue in IOP to increase coping skills, improve self-confidence, and prevent decompensation.
--- NOTE | 2024-12-02 11:10 | BH.SGPN.GN ---
Behaviors/Verbalizations/Mental Status: []Client alert and oriented, casually dressed and groomed. Eye contact fair. Motor activity appropriate. Speech within normal limits. Affect congruent, mood anxious. Thoughts linear, logical, no signs of hallucinations or delusions. Client Response/Progress/Benefit: [] Pt engaged in session AEB contributing to discussion and engaging in small group. Attentive during discussion on strategies for more effectively managing conflict in personal life. Pt noted current conflict resolution style uses the most is accommodating because doesn't want to cause any issues. Pt participated in small group for activity and did well practicing how to manage conflict scenarios. Pt given handout on fair fighting rules and how to identify common conflict barriers. Pt indicated what needs improvement in conflict for them. Appeared to benefit from gaining strategies to help pt better manage conflict. Will continue IOP tx promote use of healthy coping skills, challenge negative thoughts, and prevent decompensation.
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
--- NOTE | 2024-12-04 07:36 | BH.DR.ITP ---
Initial Treatment Plan Patient Information Visit Information: ADMISSION DATE: 12/01/2024 EXPECTED LOS: 4-6 weeks Diagnoses:: Generalized anxiety disorder Problems/Symptoms Problem #1:: Anxiety Symptom:: Somatic symptoms, panic attacks, tearfulness, poor sleep, low motivation, avoidance
--- NOTE | 2024-12-04 10:15 | BH.SGPN.GN ---
Behaviors/Verbalizations/Mental Status: []Pt alert and oriented, casually dressed and groomed. Eye contact good. Motor activity appropriate. Speech within normal limits. Affect congruent, mood depressed and anxious. Thoughts linear, logical, no signs of hallucinations or delusions. Client Response/Progress/Benefit: [] Pt was an attentive and active participant, AEB taking notes and providing input in group discussion. Attentive during psychoeducation. Pt engaged during interactive discussion in which the group defined self-care and discussed its benefits. Group discussed barriers and benefits to self-care. Identified benefits as being more productive, less physical pain, feeling happier, less irritability, and being more capable. Pt participated in small groups where they worked to identify and challenged common self-care ?myths?. Benefited from increased awareness of self-care, its benefits, and the consequences of not utilizing self-care strategies. Pt connected with myths of self-care being selfish and being too expensive. Will continue IOP tx to prevent decompensation, improve distress tolerance skills, and improve daily functioning. Narrative Note: []
--- NOTE | 2024-12-04 12:04 | BH.NA_ITS ---
Physical Data Vital Signs Pulse Rate: 91 Blood Pressure: 138/77 Height/Weight Height: 1.63 m Weight:: 84.368 kg Weight in Pounds: 186.0 lbs Current Medication Compliance Medication Compliance Do you take your medication as prescribed?: Yes Functional Assessment Sleep Pattern Describe any problems with sleeping: Client is sleeping about 7-8 hours per night. Sensory/Communication Assess Vision Problems Do you have any vision problems?: Glasses Communication Problems Do you have difficulty understanding what people are saying?: No Medical Problems/History Cardiac Conditions Cardiovascular: Hypertension Respiratory Conditions Respiratory: Asthma Metabolic Conditions Metabolic: Diabetes (type 2- diagnosed 2 years ago. A1C earlier this month was 6.1. Has Dexcom g7 CGM and monitors blood sugar/carb intake.) Gastrointestinal Conditions Gastrointestinal: Other (See comments) (GERD) Musculoskeletal Conditions Musculoskeletal: Other (See comments) (fibromylagia) Additional History Additional comments:: PCOS Surgical History Surgical History Have you had any surgeries? If so, list type and date:: Yes (appendectomy, wisdom teeth) Substance Abuse Substance Abuse Please describe substance abuse in the last 30 days:: Client denies alcohol, tobacco or substance use. Client states she no longer drinks caffeine. Mental Status Summary Mental Status Significant Findings/Observations on Appearance and Mood:: Client is alert and oriented x 4. Client is casually groomed. Client is cooperative with assessment. Client makes good eye contact. Client's speech has normal rate and volume. Client appears mildly depressed. Client has a mood congruent affect. Client makes logical associations and has normal processing. Client denies delusions/hallucinations. Client admits to passive thoughts of , but denies SI. Suicide Assessment Suicidal Ideation Are you currently or have you been suicidal in the past?: Yes Suicidal Intentional Rating Scale (SIRS): Suicidal thoughts (past) (denies suicidal thoughts, but admits to passive thoughts of (It would be better if I just didn't wake up)) Physician Notification Past Psychiatric History MH Treatment Hx Age of first mental health symptoms: Client states she first took medication for anxiety/depression around age 18 and has been on medication since then with the exception of stopping medication last year before restarting. Describe (age, circumstance, etc) any past hospitalizations: 11/04/24-11/09/24 at [facility] for passive thoughts of and anxiety Current providers for mental health treatment (counselor, psychiatrist, supportive employment case manager, etc.): Maya Mckeon ASSISTANT PROFESSOR OF MATHEMATICS at [facility] for psychiatry Fall Risk Assessment Age Age: Less than 60 Mental Status Mental Status: Willing & able to ask for assistance when needed Physical Status Physical Status: No problems Impairments Impairments: None Elimination Elimination: Continent AND independent Gait or Balance Gait or Balance: Walks independently Hx of Falls History of falls in the past 6 months: No known history Medications/Substances Psychotropics:: Antidepressants Others:: Antihypertensives Medications/substances used within the past 24 hours or ordered to administer: 1-2 of the medications/substances listed above Total Score Total Points:: 1 RN Summary of Impressions Impressions Recommendations Impressions: Psychiatric Issues: generalized anxiety disorder, major depressive disorder Level of Care How do the client's current symptoms and functional deficits support need for this level of care?: Client was referred to IOP after a recent hospitalization to [facility] in October 2024. Client had been to the ER several times in October for anxiety and depression prior to hospitalization. Client states she feels she is at her rock bottom and states she wants to get better for her kids. Client admits to passive thoughts of (It would be better if I didn't wake up) but denies active SI with plan or intent. Client reports crying episodes, isolation, avoidance, and feeling like a failure. Client states her kids and her mom are protective factors from ever hurting herself. IOP will promote gains and prevent further decompensation while providing social support and skills training. Nutritional Screen Height/Weight Height: 1.63 m Weight:: 84.368 kg Weight in Pounds: 186.0 lbs Nutrition Screening Normal Weight: 88.451 kg Normal/Usual Weight in Pounds: 195.0 lbs Have you lost weight without trying: No Have you been eating poorly because of a decreased appetite: No Recently been on tube feeds, TPN, or have any nutritional access device in place: No Have any large open wounds or wounds that are not healing: No Calculated Weight Change: [phone] Change in weight Score: 1 MST Screening Tool Score: 1
[2024-12-04 12:08] VITALS: BP 138/77; PULSE 91
--- NOTE | 2024-12-04 13:44 | BH.MDN ---
Multi-Disciplinary Note Note 60-min Individual: Time Started:: 09:00 Date: 12/04/24 Purpose of session/treatment goals addressed:: To gather information on pt's current stressors, symptoms, triggers, history, and tx goals. Another goal was to build rapport and provide emotional support. Eye Contact:: Good Motor Activity:: Restless Appearance:: Casual Speech:: Appropriate Mood:: Anxious and Depressed Affect:: Constricted Thoughts:: Circular and No evidence of hallucinations/delusions noted Staff Interventions:: thought challenging, psychoeducation on: (anxiety maintenance cycles), CBT techniques, rapport building, strengths perspective and goal setting Client Response:: Pt responded well to session, open to meeting with therapist. Pt reports she has some medication questions that she hopes get address when she meets with the psychiatrist. Pt stated she has not noticed a change in her mood/symptoms yet and she wants to know when I'll start to feel better. Pt reports she has always been anxious but pt shared it was controlled for years. Pt shared belief that she started decompensating because of her job which triggered significant anxiety and ultimately led to pt getting let go. Pt shared she was so stressed that she was forgetting things and making mistakes. Pt has been anxious about not having a job and how she will pay her bills. Pt shared she recognizes that she needs to focus on improving her mental health right now, because pt stated I can't go out and get a job like this right now. Pt also received some help with paying her rent for the few months, so that has given pt some relief. Pt stated her brain is constantly racing and she can find anything to worry about. Pt receptive to psychoeducation on maintenance cycles for anxiety and we went over the CBT triangle. Pt reports she does do a lot of avoidance which reinforces anxiety and ultimately leads to feeling more overwhelmed. Pt had been living with her mother as pt was having extreme anxiety at home, but pt shared she has to go back home for a week and she feels very anxious. Discussed things that could be helpful including having conversations with her kids, her sister, and her mother. Pt responded well to this and plans to talk with her family about a plan this weekend. Risks/Concerns:: Pt denies any suicidal ideation, plan, or intent. Progress Toward Goals/Plan:: Pt's first week of IOP tx and pt reports connecting with peers and despite being anxious, pt feels motivated to get better. Pt stated her anxiety is so severe that she is unable to sit still, sleep, and she has constant racing thoughts. Pt noted she wants to get back to her daily functioning which includes being able to take care of her children, work, and complete ADLs. Pt will continue IOP tx to prevent decompensation, improve daily functioning, and healthy coping skills. Time Stopped:: 09:55
--- NOTE | 2024-12-07 09:00 | BH.SGPN.GN ---
Behaviors/Verbalizations/Mental Status: [] Pt alert and oriented, casually dressed and groomed. Eye contact fair. Motor activity appropriate. Speech within normal limits. Affect congruent, mood anxious. Thoughts linear, logical, no signs of hallucinations or delusions. Reviewed pt?s symptom tracker, 0/5 with 5 being severe for risk for suicidal ideation, indicates a 0/5 for plan, and intent to kill self. Pt does not appear to be imminent risk to harm self.12/07/24. Client Response/Progress/Benefit: []Pt was an active participant in group discussions. Attentive. Per patients daily symptom tracker, pt indicates a 4/5 for depression and a 4/5 for anxiety, with 5 being severe. Pt's first mental health positive was going home to take care of her dog despite feeling anxious about it. Pt is currently staying with mother, but she needs to go home for a few days as the family member who was watching her dog is away. Pt reports feeling very anxious about this, but is utilizing her coping skills and the support from her sister to help her. Pt also stated that she was working on improving communication with her family about her depression and anxiety. Pt's other positive was finding someone to pay her rent for the next three months. Pt reports her stressor as feeling scared about having to go back to her house for a few days. Pt was supportive and attentive to others in the group. Pt seemed to benefit from support from peers. Will continue IOP tx to promote healthy coping mechanisms, reduce negative thinking patterns, and prevent decompensation.
--- NOTE | 2024-12-07 10:10 | BH.SGPN.GN ---
Behaviors/Verbalizations/Mental Status: []Pt alert and oriented, casually dressed and groomed. Eye contact good. Motor activity appropriate. Speech within normal limits. Affect congruent, mood anxious. Thoughts linear, logical, no signs of hallucinations or delusions. Client Response/Progress/Benefit: [] Pt receptive to session AEB contributing to group discussion, as well as listening attentively to others, and taking notes. Worked with group to brainstorm the positive and negative aspects of stress on physical and mental health as well as the impact of distress on performance, relationships, and mental health. Pt shared their current personal top stressors to be: mental health, finances, and work. Shared when feeling overwhelmed with stress pt tends become angry. Benefited from increased awareness of positive and negative stress as well as how stress impact individuals. Will continue in IOP to prevent decompensation, improve daily functioning, and reduce negative thinking patterns. Narrative Note: []
--- NOTE | 2024-12-07 11:15 | BH.SGPN.GN ---
Behaviors/Verbalizations/Mental Status: []Eye contact is good. Motor activity is appropriate. Appearance is casual. Speech is Appropriate. Mood is anxious. Affect is congruent. Thoughts are linear and logical. No evidence of psychosis. Client Response/Progress/Benefit: [] Pt was an attentive participant in group discussions and actively engaged during experiential activity. Attentive during psychoeducation on the 4 A's (Avoid, adapt, alter, accept) of coping with stress. Identified one of the 4 A's to address one their top stressors. Participated with peers on identifying the connection between the experiential activity and utilization of stress management skills. Pt shared wanting to work on ?challenging my all or nothing thinking.? Benefited from increased awareness of stress management strategies. Pt will continue IOP to prevent decompensation, maintain safety, and gain healthy coping skills. ?? Narrative Note: []
--- NOTE | 2024-12-07 14:55 | BH.MDN ---
Multi-Disciplinary Note Note 45-min Individual: Time Started:: 12:05 Date: 12/07/24 Purpose of session/treatment goals addressed:: To work on goal #1 of pt's tx plan and to begin thought challenging negative self-talk. Eye Contact:: Good Motor Activity:: Appropriate Appearance:: Casual Speech:: Soft Mood:: Anxious and Depressed Affect:: Congruent (tearful) Thoughts:: Circular and No evidence of hallucinations/delusions noted Staff Interventions:: thought challenging, CBT techniques, mindfulness skills (rehearsed PMR and deep breathing), strengths perspective, goal setting (homework to practice calming skills twice a day ) and taught coping skills (self-compassion self-talk statements.) Client Response:: Pt responded well to session, open to meeting with therapist. Pt reports feeling anxious and down on herself. Pt shared she is feeling so impatient and pt wants to be better so I can get my life back. Pt responded well to gentle thought challenging, reminding pt that wellness takes ongoing effort and time to be sustainable. Pt stated that she was able to be at home with her kids this weekend, but it was very stressful and pt feels that her children are not respecting her boundaries. Pt and therapist discussed how this was to be expected as this is new territory for all involved. Pt shared she has never set many boundaries with her children because of the childhood pt had. Pt recognizes now that boundaries are not a bad thing, and pt was reminded that it is normal to feel uncomfortable, but to continue with the boundary. Pt receptive to practicing self-compassion as she is working on being more realistic with her wellness journey and with setting boundaries with her teenage children. Pt also willing to practice calming skills in session. Pt shared she knows she has skills, but pt feels that she often forgets them in the moment. Processed why this is and pt agrees to practice calming skills twice a day, not just when she is anxious. Pt practiced PMR in session and reported it to be very helpful. Risks/Concerns:: Pt denies any suicidal ideation, plan, or intent. Pt denies any thoughts of . Progress Toward Goals/Plan:: Pt appears to be benefitting from IOP so far as pt reports feeling less agitated since taking her new medication and pt is feeling supported by peers and staff. Pt reports she recognizes that she is really impatient and pt stated she feels frustrated that she is not better yet. Pt receptive to thought challenging by therapist and homework. Pt's anxiety continues to be severe, impacting her sleep and overall functioning. Pt will continue IOP tx to prevent decompensation, improve daily functioning, and gain healthy coping skills. Time Stopped:: 12:50
--- NOTE | 2024-12-09 09:00 | BH.SGPN.GN ---
Behaviors/Verbalizations/Mental Status: [] Pt alert and oriented, Casually dressed and groomed. Eye contact fair. Motor activity appropriate. Speech within normal limits. Affect congruent, mood anxious. Thoughts linear, logical, no signs of hallucinations or delusions. Reviewed pt?s symptom tracker, 0/5 with 5 being severe for risk for suicidal ideation, indicates a 0/5 for plan, and intent to kill self. Pt does not appear to be imminent risk to harm self.12/09/24. Client Response/Progress/Benefit: []Pt was an active participant in group discussions. Attentive. Per patients daily symptom tracker, pt indicates a 3/5 for depression and a 3/5 for anxiety, with 5 being severe. Pt shared their mental health positive as showing up for group today despite struggling with depressive symptoms. pt stated the the previous day had been spent mostly in bed and she did not feel like showing up today. 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 Pt's stressor is worrying that her fibromyalgia may be a hindrance to her being able to perform all of her job duties. Pt responded well to other group members who gave advice on being open about her fibromyalgia when she goes for an interview. Pt was supportive and attentive to others in the group. Pt seemed to benefit from support from peers. Will continue IOP tx to promote healthy coping mechanisms, reduce negative thinking patterns, and prevent decompensation.
--- NOTE | 2024-12-09 10:10 | BH.SGPN.GN ---
Behaviors/Verbalizations/Mental Status: [] Eye contact is fair to good. Motor activity is appropriate. Appearance is casual. Speech is soft, limited input. Mood is anxious and euthymic. Affect is congruent. Thoughts are linear and logical. No evidence of psychosis. Client Response/Progress/Benefit: [] Client was an semi active participant in group discussion and experiential activity, though remaining mostly passive throughout. Attentive during psychoeducation on resilience. Participated in interactive discussion with peers on the definition of resilience and where it comes from. Group identified that resiliency can be impacted by; past experiences, personality, and current mental health state. Group also worked together to identify the benefits of being resilient and how it is related to mental health. Able to relate experiential activity of group juggle to topics of resilience. Worked well with peers in small group in which they identified factors that contribute to resilience. Benefited from increased awareness of resilience and the factors that contribute to building resilience. Will continue in IOP to prevent decompensation and further promote mood stability. Narrative Note: []
--- NOTE | 2024-12-09 11:10 | BH.SGPN.GN ---
Behaviors/Verbalizations/Mental Status: [] Client alert and oriented, casually dressed and groomed. Eye contact fair. Motor activity appropriate. Speech within normal limits. Affect congruent, mood euthymic . Thoughts linear, logical, no signs of hallucinations or delusions Client Response/Progress/Benefit: [] Client responded well to session AEB completing the resilience worksheet provided. Client participated in the discussion and worked cooperatively with group to identify strategies to enhance each of the components discussed. Client reports belief they use the trait ?maintaining a hopeful outlook but client stated it is one they would like to develop more as well and that depending on the day it can be hard to do that. Client seemed to benefit from discussing strategies for improving personal resilience and identifying resilience traits Client already possesses.. Will continue IOP tx to promote mood stability, reduce negative thinking patterns, and increase overall functioning. Narrative Note: []
--- NOTE | 2024-12-11 09:00 | BH.SGPN.GN ---
Behaviors/Verbalizations/Mental Status: [] Pt alert and oriented, Casually dressed and groomed. Eye contact fair. Motor activity appropriate. Speech within normal limits. Affect congruent, mood depressed. Thoughts linear, logical, no signs of hallucinations or delusions. Reviewed pt?s symptom tracker today, denies suicidal ideation, plan, and intent.12/11/24. Client Response/Progress/Benefit: []Pt was an active participant in group discussions. Attentive. Per patients daily symptom tracker, pt indicates a 3/5 for depression and a 2/5 for anxiety, with 5 being severe. Pt reported her mental health positives as showing up for group today, and making it through her second week of IOP. Pt initially struggled to find mental health positives, but after some group encouragement, shared that she had been handling going back to her house to take care of her dogs much better than she thought she would, and her overall anxiety about the situation is less than the previous week. Pt's reported her stressor as feeling tired of being depressed, and wondering how long it will take to get better. Pt was supportive and attentive to others in the group. Pt seemed to benefit from support from peers. Will continue IOP tx to promote healthy coping mechanisms, reduce negative thinking patterns, and prevent decompensation.
--- NOTE | 2024-12-11 10:15 | BH.SGPN.GN ---
Behaviors/Verbalizations/Mental Status: [] Eye contact is good. Motor activity is appropriate. Appearance is casual. Speech is Appropriate. Mood is anxious. Affect is congruent. Thoughts are linear and logical. No evidence of psychosis. Client Response/Progress/Benefit: [] Limited engagement in group discussions however attentive AEB note-taking. Attentive during psychoeducation on anxiety and cognitive triangle. Attentive during interactive discussion on defining anxiety and identifying cognitive and physiological symptoms of anxiety. The group discussed helpful vs harmful anxiety. Attentive as peers worked together to identify common physical/physiological signs of anxiety which included: butterflies in stomach, tension, increased HR, trembling, dry mouth, headaches, numbness/tingling, hot flashes, sweating, and blurry vision. Benefited from increased awareness and insight on anxiety and its impact. Will continue in IOP to prevent decompensation, decrease anxious thoughts, improve functioning, and promote use of healthy coping skills. Narrative Note: []
--- NOTE | 2024-12-11 11:15 | BH.SGPN.GN ---
Behaviors/Verbalizations/Mental Status: [] Eye contact is good. Motor activity is appropriate. Appearance is appropriate. Speech is Appropriate. Mood is anxious. Affect is congruent. Thoughts are linear and logical. No evidence of psychosis. Client Response/Progress/Benefit: [] Pt was an active participant AEB pt providing input and listening attentively to peers. Attentive during psychoeducation on mindfulness coping skills, body-based coping skills, and mind-based coping skills and their impact on reducing anxiety and improving overall mental health wellness. Group was able to identify self-soothing and mind-based coping skills which included: 5-senses, meditation, deep breathing, walking/exercise, music, engaging with others, opposite-action, and affirmations. Pt verbalized skill to make effort to use this week as: weighted blankets and brain games. Pt will continue IOP to prevent decompensation, maintain safety, increase healthy coping, and improve functioning. Narrative Note: []
--- NOTE | 2024-12-14 09:00 | BH.SGPN.GN ---
Behaviors/Verbalizations/Mental Status: [] Pt alert and oriented, Casually dressed and groomed. Eye contact fair. Motor activity appropriate. Speech within normal limits. Affect congruent, mood depressed but presented as calm. Thoughts linear, logical, no signs of hallucinations or delusions. Reviewed pt?s symptom tracker today, denies suicidal ideation, plan, and intent.12/14/24. Client Response/Progress/Benefit: []Pt was an active participant in group discussions. Attentive. Per patients daily symptom tracker, pt indicates a 3/5 for depression and a 2/5 for anxiety, with 5 being severe. Pt was excited to share that she had multiple wins to bring to the group. Pt's first mental health positive was coming to group despite not wanting to get out of bed. Pt also shared that she asked to be able to attend group more often, as she felt that having more downtime was negatively affecting her mental health. Her other mental health positive was having a good night with her sons on Saturday, stating that she forgot she was anxious and depressed. Pt stated that this night felt like a normal night, before she began struggling with mental health issues. Her final positive was sending in an application for a new job. Pt's stressor is feeling stuck, and like she will not be able to get better. Pt was supportive and attentive to others in the group. Pt seemed to benefit from support from peers. Will continue IOP tx to promote healthy coping mechanisms, reduce negative thinking patterns, and prevent decompensation.
--- NOTE | 2024-12-14 10:10 | BH.SGPN.GN ---
Behaviors/Verbalizations/Mental Status: []Pt alert and oriented, casually dressed and groomed. Eye contact good. Motor activity appropriate. Speech within normal limits. Affect congruent, mood anxious. Thoughts linear, logical, no signs of hallucinations or delusions. Client Response/Progress/Benefit: [] Pt took notes and contributed to group discussions. Attentive during psychoeducation on growth mindset. Interactive group discussion on fixed mindset in which group verbalized their current fixed mindsets and how they affect their mental health. Pt shared common fixed mindset thoughts they have. Pt shared a personal fixed thought Why should I even try.? Pt able to connect negative impact fixed thoughts have on functioning. Pt benefited from increased awareness of growth mindset and fixed thoughts and how fixed thoughts impact their mental health. Will continue IOP tx to Increase consistent use of healthy coping skills, improve confidence, and prevent decompensation. Narrative Note: []
--- NOTE | 2024-12-14 11:10 | BH.SGPN.GN ---
Behaviors/Verbalizations/Mental Status: []Pt alert and oriented, neatly dressed and groomed. Eye contact good. Motor activity appropriate. Speech within normal limits. Affect congruent, mood content. Thoughts linear, logical, no signs of hallucinations or delusions. Client Response/Progress/Benefit: [] Pt was an active participant during activity and discussion. Pt did well to remain attentive and participate as group worked on identifying characteristics and benefits of adopting a growth mindset. Worked with fellow participants in reframing the example fixed thoughts into growth mindset thoughts. Pt worked on changing own fixed thought. Pt?s reframed thought was ?I will get this right if I keep trying.? Pt attentive during discussion about different strategies that can help with fostering a growth mindset. Pt appeared to benefit from challenging own thoughts and engaging in the activity. Pt will continue IOP tx to prevent decompensation, improve mood stability, and increase healthy coping skills. Narrative Note: []
--- NOTE | 2024-12-15 10:15 | BH.SGPN.GN ---
Behaviors/Verbalizations/Mental Status: []Eye contact is fair. Motor activity is appropriate. Appearance is neat. Speech is Appropriate. Mood is content. Affect is congruent. Thoughts are linear and logical. No evidence of psychosis. Client Response/Progress/Benefit: [] Pt was an active participant in group discussions. Attentive during psychoeducation on the 4 communication styles (Passive, Passive-Aggressive, Aggressive, and Assertive) and the obstacles to effective communication. Contributed during interactive discussion on the benefits of communicating effectively. Worked well with peers to identify the benefits and disadvantages to the different communication styles. Pt believes that they are primarily passive because they fear conflict. Benefited from increased understanding of communication styles and how these can impact effective communication. Will continue in IOP to prevent decompensation, improve daily functioning, and increase self-compassion. ? Narrative Note: []
--- NOTE | 2024-12-15 11:10 | BH.SGPN.GN ---
Behaviors/Verbalizations/Mental Status: []Pt alert and oriented, casually dressed and appropriately groomed. Eye contact good. Motor activity calm. Speech within normal limits. Affect congruent, mood euthymic and engaged. Thoughts linear, logical, no signs of hallucinations or delusions. Client Response/Progress/Benefit: [] Pt responded well to session AEB Pt listening attentively to others and providing input during group discussion on the pay offs and costs of the different communication styles. Pt able to connect how current communication style impacts mental health. Connected with peers? comments about the importance of using assertive communication. Pt seemed to benefit from increasing awareness of healthy strategies to improve communication. Pt stated she would like to work on showing more assertiveness with kindness. Will continue IOP tx to prevent decompensation, decrease anxious avoidance, and build healthy coping skills.
--- NOTE | 2024-12-15 13:41 | BH.MDN_ITS ---
Multi-Disciplinary Note Note 60-min Individual: Time Started:: 09:10 Date: 12/15/24 Purpose of session/treatment goals addressed:: To work on distress tolerance skills and thought challenging techniques. Eye Contact:: Good Motor Activity:: Appropriate Appearance:: Neat Speech:: Appropriate Mood:: Euthymic and Anxious Affect:: Full Thoughts:: Racing and No evidence of hallucinations/delusions noted Staff Interventions:: thought challenging, CBT techniques, mindfulness skills, strengths perspective, goal setting and other (homework to write out her strengths, skills, and resources when faced with stressors.) Client Response:: Pt responded well to session, open to meeting with therapist. Pt reports she has been doing a little better. Pt shared she has been able to function better at home- including being able to be home with her children and taking care of household tasks. Pt also noted that she has been able to look back at her job situation and be less critical of herself. Pt shared I'm looking at it now and I realize that I was asking for help, but he wasn't listening. Pt stated this has helped her challenge the inappropriate guilt she was feeling. Pt shared she hopes that she can continue to work on challenging this and being more comfortable around her old boss. Pt stated there are additional opportunities if pt can control her anxiety around her old boss. However, pt noted she is not ready yet as the thought of being in that kind of environment is too triggering currently. Pt stated she still struggling with overthinking, jumping to conclusions, and being impatient. Pt receptive to learning about thought challenging and discussed ways to do this including looking at pt's strengths and resources. Pt encouraged to do this for problems that seem insurmountable to remind pt that she is capable of overcoming barri ers. Pt also wanted to problem-solve what to do on her days off from IOP tx as pt struggles with being too anxious without distraction. Pt receptive to coming up with a routine to do self-care tasks, read, and use that time to review her binder. Risks/Concerns:: Pt denies any suicidal ideation, plan, or intent. Pt denies any thoughts of . Progress Toward Goals/Plan:: Pt is responding well to IOP tx AEB pt's report of less restlessness, gaining insight, and improving ability to function. Pt reports she is seeing a benefit from her medication and pt feels she learning a lot from the group topics. Pt's anxiety and depression continue to impact her daily, specifically pt's cognitive abilities, motivation, and physical symptoms. Pt will continue IOP tx to prevent decompensation, improve distress tolerance skills, and improve daily functioning. Time Stopped:: 10:10
--- NOTE | 2024-12-18 09:00 | BH.SGPN.GN ---
Behaviors/Verbalizations/Mental Status: [] Eye contact is good. Motor activity is appropriate. Appearance is casual. Speech is Appropriate. Mood is anxious. Affect is congruent. Thoughts are linear and logical. No evidence of psychosis. Reviewed daily check in sheet and no reports of suicidal ideations or intent. Client Response/Progress/Benefit: [] Pt participated at times during the group discussions. Attentive. Daily symptom tracker notes 2/5 for depression and /5 for agitation. Shared that she isolated for most of the day yesterday. Primary trigger was migraines. Anxiety over an upcoming project which has impacted her motivation and energy. She is utilizing skills to combat negative thinking. Fearful she will become overwhelmed and not follow through with responsibilities. Benefited from group support, encouragement, and feedback. Will continue in IOP to prevent decompensation, stabilize anxiety, increase healthy coping, and improve functioning. Narrative Note: []
--- NOTE | 2024-12-18 10:10 | BH.SGPN.GN ---
Behaviors/Verbalizations/Mental Status: [] Pt alert and oriented, casually dressed and groomed. Eye contact good. Motor activity appropriate. Speech within normal limits. Affect congruent, mood euthymic. Thoughts linear, logical, no signs of hallucinations or delusions. Client Response/Progress/Benefit: [] Client engaged during group session as evidenced by contributions during group discussions, appearing to listen to others, and taking notes. Client engaged in small group discussion about barriers that keep people from having difficult conversations. Group identified potential reasons individuals avoid difficult conversations which included; feeling uncomfortable, reaction of others, fear, and not in a good place mentally. Group also identified benefits to having crucial conversations. Pt shared that continuing to have conversations is import whether comfortable or not. Client seemed to benefit from increased awareness and education about importance of having difficult conversations and recognizing the impact of avoiding such conversations. Client to continue IOP to prevent decompensation, increase healthy coping, and improve functioning. Narrative Note: []
--- NOTE | 2024-12-18 11:10 | BH.SGPN.GN ---
Behaviors/Verbalizations/Mental Status: [] Pt alert and oriented, casually dressed and groomed. Eye contact good. Motor activity appropriate. Speech within normal limits. Affect congruent, mood euthymic. Thoughts linear, logical, no signs of hallucinations or delusions. Client Response/Progress/Benefit: [] Pt was an active participant, engaged in activities and discussion. Pt able to identify ways they negatively contribute to crucial conversations and pt was engaged during psychoeducation of the different ways to build interpersonal effectiveness skills. Pt and peers practiced mirroring and active listening in partners. Group reviewed [employer] and used the handout to help map out how they would like a crucial conversation in their life to go. Pt shared with group that they want to have a crucial conversation with their boss about their workload. Pt will continue IOP tx to prevent decompensation, improve daily functioning, and increase self care. Narrative Note: []
--- NOTE | 2024-12-21 11:10 | BH.SGPN.GN ---
Behaviors/Verbalizations/Mental Status: []Pt alert and oriented, casually dressed and groomed. Eye contact fair. Motor activity appropriate. Speech within normal limits. Affect congruent, mood anxious. Thoughts linear, logical, no signs of hallucinations or delusions. Client Response/Progress/Benefit: [] Client responded well to session AEB listening attentively to peers, providing input, as well as taking notes throughout. Group discussed different styles of boundary setting. Participated in small group discussion brainstorming various strategies for improving healthy boundary setting. Pt took time to complete reflection on which skills would like to implement to improve boundaries. Seemed to benefit from increased awareness of how different boundary styles can impact mental health. Pt stated she learned that she has healthier boundaries than she initially thought. Pt stated due to life experience with unhealthy family members it helped her become more confident with setting firm healthy boundaries with others. Will continue IOP tx prevent decompensation, decreasing anxious thoughts, and improve consistent use of healthy coping skills.
== END 2024-12-18 23:59 ==
LOC: BHIOP 08:00
PROVIDERS: PCP Family Medicine; Referring Provider Student in an Organized Health Care Education/Training Program; Visit Provider Student in an Organized Health Care Education/Training Program
DX: F33.2 Major depressive disorder, recurrent severe without psychotic features (principal); F41.1 Generalized anxiety disorder
CPT/HCPCS: H2012; H2020; S9480; 90834; 90837

== ENCOUNTER 2024-12-21 08:35 | Outpatient (RCR) | payer MEDICAID, SELFPAY ==
--- NOTE | 2024-12-21 09:00 | BH.SGPN.GN ---
Behaviors/Verbalizations/Mental Status: [] Pt alert and oriented, neatly dressed and groomed. Eye contact good. Motor activity appropriate. Speech within normal limits. Affect congruent, mood content. Thoughts linear, logical, no signs of hallucinations or delusions. Reviewed pt?s symptom tracker, no risk for suicidal ideation, plan, or intent 12/21/24. Client Response/Progress/Benefit: []Pt was an active participant in group discussions. Attentive. Able to identify mental health wins including ?getting here has been less challenging and I?m able to fight off my anxiety? and ?I did good keeping busy this weekend.? Pt's stressor today is ?it?s still hard for me on the off days of IOP.? The group offered pt suggests managing this stressor and emotional support which pt reported was helpful. Pt is feeling ?neutral? this morning. Pt receptive to feedback from peers. Benefited from group support, encouragement, and feedback. Progress noted. Will continue IOP tx to increase distress tolerance skills, combat distortions, and build self-confidence. Narrative Note: []
--- NOTE | 2024-12-21 10:10 | BH.SGPN.GN ---
Behaviors/Verbalizations/Mental Status: []Eye contact good, Motor activity is appropriate, Appearance is neat. Speech appropriate. Mood calm. Affect congruent. Thoughts are linear and logical. No evidence of psychosis. Client Response/Progress/Benefit: [] Pt was an active participant during interactive group discussions. Attentive during discussion of the different types of boundaries (rigid, porous, healthy) Took notes and provided input. Contributed to the discussion on defining boundaries and the benefits and barriers to them. Active participant in the boundary continuum activity. Identified boundary type as more porous and pt stated ?I?m a people pleaser.? Group discussed mental health benefits to establishing boundaries, and situations in which lessening boundaries are appropriate. Pt benefited from increased awareness and insight on the importance of boundary setting. Pt will continue in IOP to promote mood stability, combat distortions, and increase self-confidence. ? Narrative Note: []
--- NOTE | 2024-12-23 10:10 | BH.SGPN.GN ---
Behaviors/Verbalizations/Mental Status: [] Pt alert and oriented, casually dressed and groomed. Eye contact good. Motor activity appropriate. Speech within normal limits. Affect congruent, mood euthymic. Thoughts linear, logical, no signs of hallucinations or delusions. Client Response/Progress/Benefit: [] Pt was an active participant in group discussions and activity. Attentive during psychoeducation. Pt along with peers were able to identify several negatives on the picture given to the group. Pt and peers also identified positives in the picture and made the connect that finding positives is much more difficult. Interactive discussion on the definition of perspective, how perspective is formed, and why perspective is important in treatment. Pt along with peers also identified that perspective can either motivate and encourage treatment or be a barrier to receiving help. Pt shared how it can be more natural to have a negative perspective. Will continue in IOP to promote gains, further decrease anxiety, and increase overall fucntioning. Narrative Note: []
--- NOTE | 2024-12-23 10:49 | BH.MDN ---
Multi-Disciplinary Note Note 60-min Individual: Time Started:: 09:05 Date: 12/23/24 Purpose of session/treatment goals addressed:: To work on distress tolerance skills and build self-confidence through strengths exploration. Eye Contact:: Good Motor Activity:: Appropriate Appearance:: Neat Speech:: Appropriate Mood:: Euthymic and Anxious Affect:: Congruent Thoughts:: Circular and No evidence of hallucinations/delusions noted Staff Interventions:: thought challenging, CBT techniques, mindfulness skills, discharge planning and strengths perspective Client Response:: Pt responded well to session, open to meeting with therapist. Pt reports she is doing both pretty well and frustrated. Pt noted progress in her ability to manage stressors, having a job interview, getting her humor back, and not having as many crying spells. Pt also noted that although her thoughts continue to be constant and based in worry, she feels that her thoughts are not as racing as they were before. 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 However, pt stated she is still constantly worried about the future and what could go wrong. Pt stated she is worried that if she gets this job it will not make her enough money, her body will get too sore, and that she might not be able to do it. Pt also constantly worries about her car, her kids, and her progress. Pt's homework last week was to work on identifying strengths, resources, and skills that could help pt when faced with stressors. Pt was able to identify strengths including being a hard worker, having experience working at this job, and things she learned from previous jobs to help cope with pain. Pt was encouraged to continue working on dialectical thinking that will help pt when she catastrophizes and forgets her strengths. Risks/Concerns:: denies any suicidal ideation, plan, or intent. Pt denies any thoughts of . Progress Toward Goals/Plan:: Pt continues to do well in IOP tx and is making progress AEB pt's report of having a job interview tomorrow, having less restlessness, and feeling more stable. Pt feels that she is ready to drive with her son and pt feels ready to begin working again which is a significant difference from admission. Pt continues to report anhedonia, lack of motivation and energy, and constant worries. Pt will continue IOP tx to promote mood stability, improve daily functioning, and combat distortions. Time Stopped:: 10:00
--- NOTE | 2024-12-23 11:10 | BH.SGPN.GN ---
Behaviors/Verbalizations/Mental Status: [] Pt alert and oriented, casually dressed and groomed. Eye contact good. Motor activity appropriate. Speech within normal limits. Affect congruent, mood euthymic. Thoughts linear, logical, no signs of hallucinations or delusions. Client Response/Progress/Benefit: [] Pt was attentive and contributed in small and larger group discussion. Pt completed strengths exploration worksheet and identified personal strengths to include: optimistic and ambitious. Pt able to acknowledge how these strengths are helping her and can continue to help pt in her mental health journey. Shared wanting to set personal goals for self and utilize strengths more. Benefited from identifying personal strengths and strategies for enhancing use of identified strengths. Pt to continue IOP tx to promote use of healthy coping skills, increase self-confidence, and reduce negative thinking patterns. Narrative Note: []
--- NOTE | 2024-12-25 07:51 | PCM.BH.PN ---
Intake Vital Signs 12/04/24 12:08 12/25/24 07:51 Height 5 ft 4 in 5 ft 4 in Intake Visit Reasons: worsening depression Allergies codeine Allergy (Verified 11/12/24 10:16) Other promethazine HCl (From Phenergan) Allergy (Verified 11/12/24 10:16) Other pseudoephedrine HCl (From Sudafed) Allergy (Verified 11/12/24 10:16) Other clonazepam (From Klonopin) Adverse Reaction (Verified 12/04/24 11:51) Other hydroxyzine Adverse Reaction (Verified 12/04/24 11:51) increased heart rate nitrofurantoin (From Macrobid) Adverse Reaction (Verified 11/12/24 10:16) PT UNSURE OF REACTION Medications ?Medication ?Instructions ?Recorded ?Confirmed ?Type albuterol sulfate 90 mcg/actuation 1 - 2 puff inhalation Q4H PRN PRN 02/21/15 12/04/24 Rx aerosol inhaler (Ventolin HFA) Wheezing ##1 lisinopril 10 mg tablet 10 mg PO DAILY 11/03/23 12/04/24 History fluoxetine 20 mg capsule 40 mg PO QPM 11/04/24 12/04/24 History amitriptyline 10 mg tablet 10 mg PO QHS 12/04/24 12/04/24 History cholecalciferol (vitamin D3) 50 50 mcg PO DAILY 12/04/24 12/04/24 History mcg (2,000 unit) capsule (Vitamin D3) pantoprazole 40 mg tablet,delayed 40 mg PO DAILY 12/04/24 12/04/24 History release (Protonix) propranolol 10 mg tablet 10 mg PO BID #60 tabs 12/04/24 Rx brexpiprazole 1 mg tablet 1 mg PO DAILY #30 tabs 12/25/24 Rx HPI () History of Present Illness History provided by: patient Chief complaint: Anxiety HPI: Dulce Conroy is a 44 year old female who presents today for follow up evaluation. Reports that she has been doing pretty good but then felt like the bottom dropped out in the past couple days. She is unsure why but is feeling much more sad and extreme hopelessness the past two days. Does have concern that partially this might be related to her menstrual cycle. Is on about week 7 of the fluoxetine and slightly less with the Rexulti. Has returned home after having been staying with her mother. 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 Feels like she can't stop the worry. Is having significant difficulty with getting to sleep, and does frequently wake up in middle of the night. Tried propranolol but didn't notice a major improvement in anxiety. Appetite is somewhat reduced. Has had some passive thoughts of not being alive, but no intent or plan. Review of systems () Constitutional Denies: fever(s), chills, change in weight or fatigue Eyes Denies: change in vision or blurry vision Ears, Nose, Mouth, Throat Denies: throat pain, neck pain or change in hearing Cardiovascular Denies: chest pain, palpitations or dyspnea Respiratory Denies: dyspnea, cough or wheezing Gastrointestinal Denies: abdominal pain, nausea, vomiting, diarrhea or constipation Genitourinary Denies: dysuria or urinary frequency Musculoskeletal Reports: joint pain and muscle weakness; Denies: back pain or neck pain Integumentary/Breast Denies: rash or new lesions Neurological Denies: headache(s), dizziness or confusion Endocrine Denies: fatigue or excessive sweating Hematologic/Lymphatic Denies: easy bruising or easy bleeding Allergic/Immunologic Denies: wheezing Exam Mental Status Exam- Psych () Appearance casually dressed Attitude guarded Activity/Motor Behavior MSE activity/motor behavior finding no adventitious movements Speech regular rate, regular volume and regular prosody Mood depressed and anxious Affect anxious Thought Process linear, logical and coherent Thought Content no delusions and no hallucinations Suicidal Ideation other (Recent passive thoughts of ) Homicidal Ideation none Attention intact Concentration intact Sensorium/Orientation awake, alert and oriented x3 Memory/Cognition other (appropriate for stated age) Insight fair Judgement good Assessment & Plan () Assessment & Plan (1) ROBERT (generalized anxiety disorder): Plan: - Will titrate rexulti to 1 mg every day - Patient was informed of the risk, benefits, and possible side effects of antipsychotics medications. Side effects of these medications can include but are not limited to orthostatic hypotension (low blood pressure), weight gain, metabolic side effects, extrapyramidal side effects, and tardive dyskinesia. If you notice any abnormal movements including involuntary movement of muscles of face, lips, torso or legs please contact the office immediately. ? Continue amitriptyline and fluoxetine as before ? COntinue to use propranolol PRN (2) MDD (major depressive disorder): Plan: - Rexulti as above Charges/Coding Multi Select Codes Behavior Health Behavior Health EST Pt E/M: 18609 Est Pt Level IV
--- NOTE | 2024-12-25 09:00 | BH.SGPN.GN ---
Behaviors/Verbalizations/Mental Status: [] Eye contact is poor. Motor activity is appropriate. Appearance is casual. Speech is Appropriate. Mood is depressed. Affect is flat. Thoughts are linear and logical. No evidence of psychosis. Reviewed daily check in sheet and no reports of suicidal ideations or intent. Client Response/Progress/Benefit: [] Pt did not participated in group discussions. Daily symptom tracker notes 04/22 for anxiety and depression. Declined to check-in as well. She reports ? I?m sorry I?m just struggling?. Reports that her ? anxiety and depression are fighting to drive me?. Group provided support which was beneficial. Regression noted. Benefited from group support, encouragement, and feedback. Will continue in IOP to stabilize anxiety, prevent decompensation, and improve functioning. Narrative Note: []
--- NOTE | 2024-12-25 10:10 | BH.SGPN.GN ---
Behaviors/Verbalizations/Mental Status: [] Motor activity is appropriate. Appearance is casual. Speech is Appropriate. Mood is euthymic and anxious. Affect is full. Thoughts are linear and logical. No evidence of psychosis. Client Response/Progress/Benefit: [ ] Pt was an engaged participant AEB listening attentively to others, taking notes, and providing feedback in small group discussions. Attentive during psychoeducation AEB by note taking and providing some input. Pt worked along with peers in small groups to define inappropriate guilt and appropriate guilt. Interactive discussion on examples of both inappropriate and appropriate guilt. Pt able to connect impact inappropriate guilt can have on MH. Benefited from increased awareness of guilt and the differences between appropriate and inappropriate guilt. Pt to continue IOP tx to prevent decompensation, gain healthy coping skills, and increase self care. Narrative Note: []
--- NOTE | 2024-12-25 11:10 | BH.SGPN.GN ---
Behaviors/Verbalizations/Mental Status: [] Pt alert and oriented, casually dressed and groomed. Eye contact good. Motor activity appropriate. Speech within normal limits. Affect congruent, mood euthymic. Thoughts linear, logical, no signs of hallucinations or delusions. Client Response/Progress/Benefit: [] Pt was an engaged participant AEB listening attentively to others and providing input throughout group. Pt worked within their small group to identify strategies to manage inappropriate guilt. Identified a personal example of inappropriate guilt as ?feeling guilt for failing kids due to mental health struggles.? Pt wants to work on combatting inappropriate guilt by ?make changes needed to improve mental health.? Pt seemed to benefit from learning about strategies to manage appropriate and inappropriate guilt. Pt to continue IOP tx to prevent decompensation, gain healthy coping skills, and increase self-confidence. Narrative Note: []
--- NOTE | 2024-12-25 15:23 | BH.TPR ---
Treatment Plan Review Demographics Date of Admission:: 12/01/24 Date of Treatment Plan Review:: 12/25/24 Admitting Diagnoses:: ROBERT; MDD, recurrent, severe, without psychosis Current Diagnoses:: ROBERT; MDD, recurrent, severe, without psychosis Patient Status Patient's Response to Treatment:: Pt has responded well to session AEB consistently attending IOP and engaging in both individual and group therapy sessions. Pt consistently completes homework provided from individual counseling. Pt contributes actively during group discussions, takes notes, appears to listen to others, and engages in group activities. Pt's overall DSM-5 scores have decreased since admission and pt reports benefitting from the structure and support of group. Status of Current Problems and Symptoms: Pt's symptoms are reducing, however, pt continues to experience mood instability and low distress tolerance. Pt's sleep continues to be disrupted, her memory is still poor, and she is still feeling anxious and depressed several days a week. Pt shared she was doing better, but the past few days she has been more depressed and hopeless. Pt's biggest stressors continue to be her children, finding a job, and finances. Pt reports her car is another major stressor as well as the holidays as pt's justin is different from her family's, so pt does not celebrate with them. Progress Problem #1: Problem Name:: Anxiety Status of Goals:: obj 1- in progress. Pt reports she is gaining coping skills to help pt when she catastrophizes and to increase her self-confidence when faced with stressors. Pt struggles with consistently being able to challenge anxious thoughts. obj 2- in progress. Pt's symptoms of anxiety have decreased by 50% since admission, but she is still excessively worrying. Team Recommendations:: Treatment tx encourages pt to continue working on her tx goals as pt can further reduce anxiety symptoms and improve distress tolerance skills. Pt also can benefit from building thought challenging skills as pt struggles with catastrophizing. Pt has been encouraged to reach out to local agencies for resources to help pt find employment. Problem #2: Problem Name:: Depression Status of Goals:: obj 1- in progress. Pt's DSM-5 scores for depression have decreased by 38% since admission and pt reports this week she is feeling more hopeless than last week. Pt has gained insight to triggers, thinking patterns, and behaviors that keep depression going . Pt can identify numerous coping skills including opposite action, thought challenging, and goal setting. Team Recommendations:: Team recommends continued goals and objectives to reinforce skills and reduce symptoms. Team recommends pt continue working on combating distortions, engaging in self-care practices, and setting/accomplishing small goals each day.
--- NOTE | 2024-12-29 09:00 | BH.SGPN.GN ---
Behaviors/Verbalizations/Mental Status: [] Eye contact is good. Motor activity is appropriate. Appearance is casual. Speech is Appropriate. Mood is anxious and depressed. Affect is congruent. Thoughts are linear and logical. No evidence of psychosis. Reviewed daily check in sheet and no reports of suicidal ideations Client Response/Progress/Benefit: [] Pt participated at times during the group discussions. Attentive. Daily symptom tracker notes 04/22 for depression and anxiety. I was crying a lot yesterday. Shared with group that her medications were increased last week and she has experienced increase restlessness. According to pt she psychiatry warned her that this increase could result in restlessness so she is trying to utilize skills and remain hopeful. Hopeful these effects are temporary. Emotion for today is blah. Despite struggles she continues to practice skills and complete tasks which she reports is progress. Limited progress noted due in part to medication side effects. Benefited from group support, encouragement, and feedback. Will continue in IOP to prevent decompensation, stabilize anxiety, and improve functioning. Narrative Note: []
--- NOTE | 2024-12-29 10:10 | BH.SGPN.GN ---
Behaviors/Verbalizations/Mental Status: []Pt alert and oriented, neatly dressed and groomed. Eye contact good. Motor activity appropriate. Speech within normal limits. Affect congruent, mood euthymic and anxious. Thoughts linear, logical, no signs of hallucinations or delusions. Client Response/Progress/Benefit: [] Pt responded well to session AEB contributing to discussion, taking notes, and listening attentively to others. Group discussed the benefits of managed anger and anger as a secondary emotion. Pt participated in discussions on anger triggers and responses. Group reported outward personal signs of anger as lashing out verbally, crying, and being impulsive. Group Identified examples of anger cycles and as well the emotions that contribute to anger. Appeared to benefit from increased knowledge of the underlying emotions that impact anger and increased self-awareness of the internal and external consequences of anger. Pt will continue IOP tx to increase distress tolerance, improve self-confidence, and improve daily functioning. ? Narrative Note: []
--- NOTE | 2024-12-29 11:10 | BH.SGPN.GN ---
Behaviors/Verbalizations/Mental Status: [] client alert and oriented, casually dressed and groomed. Eye contact good. Motor activity appropriate. Speech within normal limits. Affect congruent, mood anxious. Thoughts linear, logical, no signs of hallucinations or delusions. Client Response/Progress/Benefit: [] Client was an engaged participant throughout group AEB client providing input throughout discussion. Client contributed to the continued discussion of how people express anger as well as the underlying emotions of anger. Client participated in group activity that highlighted strategies to cope with anger. Group brainstormed healthy coping skills to help prevent anger and cope with it in the moment which included: mindfulness, deep breathing, journaling, going outside, and music. Client stated would like to work on breathing to manage frustration. Client appeared to benefit from brainstorming with the group potential strategies to manage anger in healthy ways. Recommended continued IOP to decrease anxious avoidance, challenge negative thoughts,, and prevent decompensation.
--- NOTE | 2024-12-30 10:10 | BH.SGPN.GN ---
Behaviors/Verbalizations/Mental Status: []Pt alert and oriented. Casually dressed and groomed, eye contact good. Motor activity appropriate. Speech within normal limits. Affect congruent. Mood calm. Thoughts linear, logical, no signs of hallucinations or delusions. Client Response/Progress/Benefit: [] Pt was an active participant, taking notes and engaging in group discussion and activity. Connected with the topic of pitfalls and participated in group discussion about barriers that prevent from choosing a healthier path to mental wellness. Pt participated in discussion on pitfalls, what they are, and ways that we stay stuck in them. Group worked together to identify examples of internal and external pitfalls, including depression, isolation, and suicidal thoughts. Pt benefited from group and psychoeducation on pitfalls as pt learned to better identity potential barriers to improving mental health symptoms. Pt was an active participant in activity meant to demonstrate pitfalls and how to cope with them. Pt was initially frustrated by the activity, but was able to complete it. Pt will continue IOP tx decrease negative thinking patterns, improve daily functioning, and prevent decompensation.
--- NOTE | 2024-12-30 10:10 | BH.SGPN.GN ---
Behaviors/Verbalizations/Mental Status: []Pt alert and oriented, casually dressed and groomed. Eye contact good. Motor activity appropriate. Speech within normal limits. Affect congruent, mood anxious. Thoughts linear, logical, no signs of hallucinations or delusions. Client Response/Progress/Benefit: [] Pt was an active participant AEB taking notes and engaging in group activity. Connected with the topic of pitfalls and listened to group discussion on barriers that prevent from choosing a healthier path to mental wellness. Group worked together to identify examples of personal pitfalls. These examples included; having unrealistic expectations, not trusting, not asking for help, and shutting down. Pt benefited from group as pt learned to better identify potential barriers to improving mental health symptoms. Pt will continue IOP tx to continue working on decreasing anxious avoidance, improve perspective, and prevent decompensation.
--- NOTE | 2024-12-30 11:10 | BH.SGPN.GN ---
Behaviors/Verbalizations/Mental Status: []Client alert and oriented, casually dressed and groomed. Eye contact good. Motor activity appropriate. Speech within normal limits. Affect congruent, mood anxious. Thoughts linear, logical, no signs of hallucinations or delusions. Client Response/Progress/Benefit: [] Pt receptive of session, engaged throughout AEB Pt actively listening and contributing to discussion as well as taking notes.? Pt participated in the experiential activity and did well to communicate ideas with peers and manage emotions. Pt attentive as group processed how the emotions and perspective of the group impacted the activity. Pt was highly encouraging during the activity which helped peers. Group worked together to identify different coping skills to help manage pitfalls. Pt identified pitfalls they struggle with as lack of routine, isolation, and sleeping to avoid. Pt plans to work on their pitfall by ?leveling the playing field.? ?Benefited from identifying personal pitfalls and strategies to overcome these pitfalls. Pt will continue IOP tx to prevent decompensation, gain self-confidence, and improve distress tolerance skills. ?? Narrative Note: []
--- NOTE | 2024-12-30 13:24 | BH.MDN ---
Multi-Disciplinary Note Note 45-min Individual: Time Started:: 09:15 Date: 12/30/24 Purpose of session/treatment goals addressed:: To challenge negative thinking that reinforces depression and anxiety and set goals for the week. Eye Contact:: Good and Fair Motor Activity:: Appropriate Appearance:: Casual Speech:: Tangential Mood:: Anxious and Depressed Affect:: Congruent (tearful) Thoughts:: Racing, Circular and No evidence of hallucinations/delusions noted Staff Interventions:: thought challenging, motivational interviewing, CBT techniques, mindfulness skills, discharge planning (discussed resources to help pt find employment.), strengths perspective and taught coping skills (discussed distress tolerance skills and dialectical thinking) Client Response:: Pt responded well to session, open to meeting with therapist. Pt reports she is feeling so stuck and was very tearful. Pt stated since last session she has been feeling depressed again and anxious. Pt able to recognize that she is not where I was before, but I'm just so sick of feeling way. Pt responded well to emotional support and use of self-compassion by therapist. Pt reminded that last week she faced a significant trigger with not getting the full-time job she had anticipated to get. Pt shared the job ended up being part-time and that would not work for pt's current needs. Pt is now back to worrying about what will happen and how will I pay my bills. Pt reports her need for certainty has been activated and she has been spiraling about all the negative what if outcomes. Pt responded well to using her strategy of leveling the playing field to help pt combat catastrophizing. Pt able to see that there are more things in her control than she is currently giving herself credit for. Discussed options for part-time work as well as exploring programs such as [employer] [facility] [place] [facility] [employer]. Pt was less anxious and more hopeful by the end of session. 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 Risks/Concerns:: Pt admits to having thought of this morning due to worsening anxiety and depression since she did not get the full-time job. Pt denies any active SI, plan, or intent. Pt shared I don't want to kill myself I just don't want to exist sometimes. Progress Toward Goals/Plan:: Pt continues to do well in IOP tx and is making progress AEB pt's report of using healthy coping skills such as thought challenging and opposite action despite feeling more depressed. Pt continues to report anhedonia, lack of motivation and energy, and constant worries. Pt's worsening symptoms is triggered by not getting the full-time job and having to continue looking. Pt did well when encouraged and challenged during session. Pt will continue IOP tx to promote mood stability, improve daily functioning, and combat distortions. Time Stopped:: 10:00
--- NOTE | 2024-12-31 09:00 | BH.SGPN.GN ---
Behaviors/Verbalizations/Mental Status: [] Eye contact is good. Motor activity is appropriate. Appearance is casual. Speech is Appropriate. Mood is euthymic. Affect is full. Thoughts are linear and logical. No evidence of psychosis. Reviewed daily check in sheet and no reports of suicidal ideations Client Response/Progress/Benefit: [] Pt participated at times during the group discussions. Attentive. Daily symptom tracker notes 2/5 for depression and anxiety. Overall mood and functioning are ?better?. Able to identify mental health wins and healthy habits. Utilized opposite action and behavioral activation yesterday. Attended a social event rather than isolated. Conscious effort to engage which improved mood. ? Feeling more optimistic about myself?. Progress noted. Benefited from group support, encouragement, and feedback. Will continue in IOP to prevent decompensation, stabilize mood, increase healthy coping, and improve functioning. Narrative Note: []
--- NOTE | 2024-12-31 10:15 | BH.SGPN.GN ---
Behaviors/Verbalizations/Mental Status: []Pt alert and oriented, neatly dressed and groomed. Eye contact good. Motor activity appropriate. Speech within normal limits. Affect congruent, mood anxious. Thoughts linear, logical, no signs of hallucinations or delusions. Client Response/Progress/Benefit: [] Pt responded well to session, contributing to discussion and engaged during the activity. Group identified the benefits of change which included: increased confidence, progressing towards goals, and improving mental and physical health. Worked with the group to identify barriers to change, which included: uncomfortable emotions such as anxiety, lack of energy, lack of support, and fear of the unknown. Pt participated along with group in activity where they identified and discussed the emotions related to change. Benefited from increased awareness and understanding of emotions, benefits, and barriers related to change. Will continue IOP tx to increase self-confidence, combat distortions, and improve daily functioning. ? Narrative Note: []
--- NOTE | 2024-12-31 11:10 | BH.SGPN.GN ---
Behaviors/Verbalizations/Mental Status: []Client alert and oriented, casually dressed and groomed. Eye contact good. Motor activity appropriate. Speech within normal limits. Affect congruent, mood euthymic. Thoughts linear, logical, no signs of hallucinations or delusions. Client Response/Progress/Benefit: [] Pt responded well to session, attentive. Engaged in psychoeducation and discussion about finishing the stages of change. Did well to process activity and work with group to relate the strategies used to overcome barriers in the activity to managing change in own life. Pt identified a change they would like to make is to find a new job. Pt identified currently being in preparation stage for this change. Pt stated goal is to finish IOP first then focus on looking for a job. Appeared to benefit from identifying a small goal to work towards. Pt will continue IOP tx to prevent decompensation, decrease anxious avoidance, and improve emotion regulation.
--- NOTE | 2025-01-07 10:10 | BH.SGPN.GN ---
Behaviors/Verbalizations/Mental Status: [] Eye contact is good. Motor activity is appropriate. Appearance is casual. Speech is Appropriate. Mood is euthymic Affect is congruent. Thoughts are linear and logical. No evidence of psychosis. Client Response/Progress/Benefit: [] Pt engaged in session AEB listening attentively to others and providing input throughout. Pt engaged in activity, able to connect how it can be uncomfortable and difficult to practice acceptance when situations are out of one?s own control. Identified what they are struggling to accept in personal life. Worked with peer group to define acceptance and identify the benefits that acceptance can bring. Benefits included; reduced anger, self forgiveness, moving forward, and improved mental health. Seemed to benefit from increased awareness of the meaning as well as the importance of acceptance. Will continue in IOP to increase overall functioniong, challenge distortions, and prevent decompensation. Narrative Note: []
--- NOTE | 2025-01-07 11:15 | BH.SGPN.GN ---
Behaviors/Verbalizations/Mental Status: []Pt alert and oriented, casually dressed and groomed. Eye contact good. Motor activity appropriate. Speech within normal limits. Affect congruent, mood euthymic. Thoughts linear, logical, no signs of hallucinations or delusions. Client Response/Progress/Benefit: [] Pt responded well to session AEB taking notes and contributing to discussion throughout. Pt engaged as group continued discussion on acceptance and the mental health benefits of practicing acceptance. Pt and peers identified what makes acceptance challenging and pt completed a self-reflection exercise on what is hard to accept in pt's life. Pt identified something that is currently hard to accept as ?living with anxiety and depression.? Pt stated by not accepting this, it leads to ?shame?. Group identified strategies to increase acceptance. Pt noted wanting to work on ?practicing gratitude? as a strategy for improving acceptance. Pt appeared to benefit from gaining insight and learning strategies to increase acceptance. Pt will continue IOP tx to increase self worth, reinforce healthy coping skills, and combat distortions. Narrative Note: []
--- NOTE | 2025-01-08 07:50 | PCM.BH.PN ---
Intake Vital Signs 12/04/24 12:08 12/25/24 07:51 01/08/25 07:50 Height 5 ft 4 in 5 ft 4 in 5 ft 4 in Intake Visit Reasons: Follow-up Allergies codeine Allergy (Verified 11/12/24 10:16) Other promethazine HCl (From Phenergan) Allergy (Verified 11/12/24 10:16) Other pseudoephedrine HCl (From Sudafed) Allergy (Verified 11/12/24 10:16) Other clonazepam (From Klonopin) Adverse Reaction (Verified 12/04/24 11:51) Other hydroxyzine Adverse Reaction (Verified 12/04/24 11:51) increased heart rate nitrofurantoin (From Macrobid) Adverse Reaction (Verified 11/12/24 10:16) PT UNSURE OF REACTION Medications ?Medication ?Instructions ?Recorded ?Confirmed ?Type albuterol sulfate 90 mcg/actuation 1 - 2 puff inhalation Q4H PRN PRN 02/21/15 12/04/24 Rx aerosol inhaler (Ventolin HFA) Wheezing ##1 lisinopril 10 mg tablet 10 mg PO DAILY 11/03/23 12/04/24 History fluoxetine 20 mg capsule 40 mg PO QPM 11/04/24 12/04/24 History amitriptyline 10 mg tablet 10 mg PO QHS 12/04/24 12/04/24 History cholecalciferol (vitamin D3) 50 50 mcg PO DAILY 12/04/24 12/04/24 History mcg (2,000 unit) capsule (Vitamin D3) pantoprazole 40 mg tablet,delayed 40 mg PO DAILY 12/04/24 12/04/24 History release (Protonix) propranolol 10 mg tablet 10 mg PO BID #60 tabs 12/04/24 Rx alprazolam 0.25 mg tablet 0.25 mg PO BID PRN anxiety 30 days 01/08/25 Rx #60 tabs HPI () History of Present Illness History provided by: patient Chief complaint: Anxiety HPI: Dulce Conroy is a 44 year old female who presents today for follow up evaluation. Patient reports to feeling more restless with increase in Rexulti. Does continue to feel more hopeless and frequently cries. Sleep has been ok. Often times feels sad and has motivation. Describes lack of yann in things, specifically describing not wanting to do anything I want to do. Has been utilizing alprazolam very infrequently when feeling extremely anxious. Currently down to 2 pills. Appetite has been reduced. Denies any current thoughts of suicide, but does have continued thoughts of wanting to . Has put job search on hold for the time being. Is scheduled to meet with [employer] on January 21 for possible job placement. Does report to doing well with Wellbutrin in the past and doesn't remember exactly why she stopped. Review of systems () Constitutional Denies: fever(s), chills, change in weight or fatigue Eyes Denies: change in vision or blurry vision Ears, Nose, Mouth, Throat Denies: throat pain, neck pain or change in hearing Cardiovascular Denies: chest pain, palpitations or dyspnea Respiratory Denies: dyspnea, cough or wheezing Gastrointestinal Denies: abdominal pain, nausea, vomiting, diarrhea or constipation Genitourinary Denies: dysuria or urinary frequency Musculoskeletal Reports: joint pain and muscle weakness; Denies: back pain or neck pain Integumentary/Breast Denies: rash or new lesions Neurological Reports: other (akathisia); Denies: headache(s), dizziness or confusion Endocrine Denies: fatigue or excessive sweating Hematologic/Lymphatic Denies: easy bruising or easy bleeding Allergic/Immunologic Denies: wheezing Exam Mental Status Exam- Psych () Appearance casually dressed Attitude guarded Activity/Motor Behavior MSE activity/motor behavior finding no adventitious movements Speech regular rate, regular volume and regular prosody Mood depressed and anxious Affect tearful and anxious Thought Process linear, logical and coherent Thought Content no delusions and no hallucinations Suicidal Ideation passive; Not active, No intent and No plans Homicidal Ideation none Attention intact Concentration intact Sensorium/Orientation awake, alert and oriented x3 Memory/Cognition other (appropriate for stated age) Insight fair Judgement good Assessment & Plan () Assessment & Plan (1) MDD (major depressive disorder): Plan: - Taper off of Rexulti. Once off will consider increase in fluoxetine to 60 mg. Discussed taking 40 mg one day and 80 mg next and alternating to utilize current medication if not seen in person by next appointment. - Patient was informed of the risk, benefits, and possible side effects of antipsychotics medications. Side effects of these medications can include but are not limited to orthostatic hypotension (low blood pressure), weight gain, metabolic side effects, extrapyramidal side effects, and tardive dyskinesia. If you notice any abnormal movements including involuntary movement of muscles of face, lips, torso or legs please contact the office immediately. ? Continue amitriptyline and fluoxetine as before; while concomitant use of an SSRI or TCA generally not recommended want to limit medication changes to 100 time ? COntinue to use propranolol PRN (2) ROBERT (generalized anxiety disorder): Plan: - See above Medications: Discontinued brexpiprazole Discontinued Reason: Order Changed 1 mg PO DAILY 30 tabs 2RF Charges/Coding Behavior Health Behavior Health EST Pt E/M: 37575 Est Pt Level IV
--- NOTE | 2025-01-08 11:10 | BH.SGPN.GN ---
Behaviors/Verbalizations/Mental Status: [] Pt alert and oriented, casually dressed and groomed. Eye contact fair. Motor activity appropriate. Speech within normal limits. Affect full , mood euthymic, Thoughts linear, logical, no signs of hallucinations or delusions. Client Response/Progress/Benefit: [] Client responded well to session, engaged and taking notes throughout. Worked with group to connect components of the experiential activity with characteristics of healthy and unhealthy relationships. Attentive during psychoeducation about characteristics of healthy, unhealthy, and abusive relationships. Group member picked unhealthy and healthy attributes of an important relationship in their lives. Client reported they would like to continue to improve trust and time spent together in their chosen relationship. Appeared to benefit from identifying current healthy relationship attributes and an area client wants to work on to build healthier relationships. Client to continue IOP to increase healthy coping skills, stabilize mood, and prevent decompensation. Narrative Note: []
--- NOTE | 2025-01-08 11:11 | BH.MDN ---
Multi-Disciplinary Note Note 30-min Individual: Time Started:: 10:30 Date: 01/08/25 Purpose of session/treatment goals addressed:: To challenge negative thinking that reinforces depression and anxiety and set goals for the week. Eye Contact:: Good Motor Activity:: Appropriate and Restless Appearance:: Casual Speech:: Appropriate and Tangential Mood:: Anxious and Depressed Affect:: Congruent Thoughts:: Racing, Circular and No evidence of hallucinations/delusions noted Staff Interventions:: thought challenging, CBT techniques, mindfulness skills, strengths perspective and taught coping skills (Worked on dialectal thinking and challenging anxious thoughts) Client Response:: Pt responded well to session, open to meeting with therapist. Pt reports she is feeling frustrated due the the side effects of her current medication. Pt stated that it is making her feel anxious and restless. Pt stated that she is tired of feeling anxious and wishes that it would just go away. Pt stated that she is also having trouble accepting anxiety as a part of her life. Pt responded well to emotional support and use of self-compassion by therapist. Pt spoke about frustrations with her son, who she states that she has to do everything for, making her feel more anxious. Pt states that heightened anxiety has been due to new medication as well as times when her routine is interrupted. Pt responded well to use of dialectal thinking strategies and challenging her anxious thoughts by finding positive or neutral statements instead. Pt interested in exploring the idea of approaching her anxiety with compassion instead of anger, understanding that she can find ways to live with her anxiety, not against it. Pt set a goal of trying to be more self-compassionate and understanding when she is feeling anxious. Risks/Concerns:: Pt shows no risk of suicidal ideation, intent or plan as of 01/08/25. Progress Toward Goals/Plan:: Pt continues to benefit from IOP tx and is making progress AEB pt's report of using healthy coping skills such as thought challenging and opposite action despite feeling more depressed. Pt continues to report depressive symptoms, lack of motivation and energy, and constant worries. Pt did well when encouraged and challenged during session. Pt will continue IOP tx to promote mood stability, improve daily functioning, and combat distortions. Time Stopped:: 11:00
--- NOTE | 2025-01-12 10:11 | BH.MDN ---
Multi-Disciplinary Note Note 30-min Individual: Time Started:: 09:25 Date: 01/12/25 Purpose of session/treatment goals addressed:: To work on thought challenging techniques and to discuss aftercare plans Eye Contact:: Good Motor Activity:: Appropriate Appearance:: Neat Speech:: Appropriate Mood:: Euthymic and Anxious Affect:: Congruent Thoughts:: Linear and Other (ruminations and worry) Staff Interventions:: thought challenging, CBT techniques, discharge planning and strengths perspective Client Response:: Pt responded well to session, open to meeting with therapist. Pt reports that she is doing well in many ways, but this Saturday was horrible. Pt is weaning off one of her medications and pt feels that this could have been the trigger, but pt also feels her symptoms could be worse due to pt's menstrual cycle. Pt spoke with Dr. Bangura last week and he mentioned increasing pt's Prozac, see psych note. Pt shared she is afraid to do this because she has never gone up higher than the dose she is currently on. Pt able to challenge her worries and give herself credit for the ways she has progressed. Progress noted in pt being able to bounce back to her usual functioning much quicker (less than a day) when she had worse symptoms on Saturday. In the past pt noted she would have been depressed for several days at least. Pt reports she has been using skills discussed on her own, including thought challenging skills, but pt continues to default to catastrophizing. Pt gave two recent examples of how her worried thoughts impacted her. Pt and therapist reviewed the level the playing field skill that has been helping pt. Pt is working on her ability to reframe thoughts while also acknowledging her own strengths and resources. Pt receptive discussing discharge. Pt feels anxious about this, but pt also notes that she has made progress. Pt and therapist will work on a maintenance plan next week. Risks/Concerns:: Pt denies any active suicidal ideation, plan, or intent. Pt denies any thoughts of . Progress Toward Goals/Plan:: Pt is making progress towards her tx goals AEB pt's report of using healthy coping skills consistently and seeing more positive changes. However, pt's moods continue to be variable based on current stressors which makes it difficult for pt to give herself credit and see progress. Pt was offered to increase her Prozac, but did not want to do it at this time. Pt continues to endorse ruminations, excessive worry with catastrophizing, and lack of energy. Pt will work on challenging perspective, reaching out to support, and pt plans to explore [facility] [place]. Pt will continue IOP tx to promote mood stability, increase distress tolerance skills, and improve self-confidence. Time Stopped:: 10:00
--- NOTE | 2025-01-12 10:15 | BH.SGPN.GN ---
Behaviors/Verbalizations/Mental Status: []Pt alert and oriented, neatly dressed and groomed. Eye contact good. Motor activity appropriate. Speech within normal limits. Affect congruent, mood euthymic. Thoughts linear, logical, no signs of hallucinations or delusions. Client Response/Progress/Benefit: [] Pt engaged in session AEB client listening attentively to peers and providing input. Attentive and contributed to discussion as group worked on defining self-forgiveness and identifying mental health benefit. Identified benefits as: reduce guilt/shame, increase self-confidence, decrease negative self-talk, healthier relationships, ect. ?Worked in small groups to identify factors that can make self-forgiveness difficult. Pt identified a personal barrier to self-forgiveness including ?feeling the need to be punished for something.? Benefited from increased education on self-forgiveness, benefits, and what effects it. Pt will continue IOP tx to promote mood stability, increase distress tolerance, and increase self-confidence. ? Narrative Note: []
--- NOTE | 2025-01-12 11:15 | BH.SGPN.GN ---
Behaviors/Verbalizations/Mental Status: [] Client alert and oriented, casually dressed and groomed. Eye contact good. Motor activity appropriate. Speech within normal limits. Affect congruent, mood dysthymic. Thoughts linear, logical, no signs of hallucinations or delusions. Client Response/Progress/Benefit: [] Pt engaged in session AEB client listening attentively to peers and providing input. Attentive during psychoeducation on the 4 R?s of Self-Forgiveness (Responsibility, Remorse, Christian, Renewal). Contributed to discussion as group worked on identifying strategies for improving ability to practice self-forgiveness. Reports wanting to practice thought challenging and sitting with the uncomfortable. Engaged in self-forgiveness activity and benefited from increased education on self-forgiveness building skills. Pt will continue IOP tx to improve mood stability, increase self-compassion, and prevent decompensation. Narrative Note: []
--- NOTE | 2025-01-13 10:10 | BH.SGPN.GN ---
Behaviors/Verbalizations/Mental Status: [] Eye contact is good. Motor activity is appropriate. Appearance is casual. Speech is Appropriate. Mood is anxious. Affect is congruent. Thoughts are linear and logical. No evidence of psychosis. Client Response/Progress/Benefit: [] Pt responded well to session, attentive and engaged. Group participated in the discussion defining stigma as well as the stigma associated with mental health. Interactive discussion on common themes associated with mental health stigma which included being crazy, dramatic, lazy, attention-seeking, fake, broken, weak, or stupid. Pt worked with peers to begin discussion of what reinforces stigma, both socially and internally, and this was discussed further in the next group. Pt appeared to benefit from learning about the different types of stigma as well as gaining awareness of how stigma has personally impacted pt. Will continue in IOP to prevent decompensation, stabilize anxiety, increase healthy coping, and improve functioning. Narrative Note: []
--- NOTE | 2025-01-13 11:10 | BH.SGPN.GN ---
Behaviors/Verbalizations/Mental Status: []Pt alert and oriented, casually dressed and groomed. Eye contact good. Motor activity appropriate. Speech within normal limits. Affect congruent, mood anxious. Thoughts linear, logical, no signs of hallucinations or delusions. Client Response/Progress/Benefit: [] Pt engaged participant AEB participating in the activity, providing input during small group discussion, and listening attentively to others. Pt appeared to connect with discussion in the benefits of addressing mental health stigma which included: improved relationships, increased willingness to seek help, increased happiness, and improved confidence. Group brainstormed strategies to combat social and perceived stigma. Pt shared one thing pt can do to combat stigma is to practice behavior activation. Appeared to benefit from increasing awareness of strategies to combat stigma. Pt is to continue IOP to improve emotion regulation, challenge anxious thoughts, and prevent decompensation.
--- NOTE | 2025-01-13 15:04 | BH.MDN ---
Multi-Disciplinary Note Note 45-min Individual: Time Started:: 09:06 Date: 01/13/25 Purpose of session/treatment goals addressed:: Pt presented to [facility] tearful and was receptive to individual session with this therapist to process current struggles. Eye Contact:: Good (tearful) Motor Activity:: Appropriate Appearance:: Neat and Casual Speech:: Appropriate Mood:: Anxious and Depressed Affect:: Congruent Thoughts:: Linear, Logical and No evidence of hallucinations/delusions noted Staff Interventions:: thought challenging, CBT techniques and strengths perspective Client Response:: Pt arrived to [facility] group for the day in distress, tearful, and requesting to meet with her individual therapist. Pt?s therapist unavailable but pt was receptive of meeting with this therapist. Pt expressed frustration over her current mood state, reporting ?yesterday was amazing, I don?t understand why I?m feeling like this today?. Indicates that nothing of significance has happened since [facility] the previous date, noting that she had been tired and spent much of the remainder of the day in bed. Shared that this worried her children as she had been doing better over. Reported thoughts of ?I don?t want to kill myself, but I don?t want to live? before becoming very tearful again. Reports that she attempted to utilize skills of positive affirmations and listening to music this morning, but with no improvement. Pt expressed some belief that her mood sx may be related to medications and inquired whether she could begin the changes she had discussed with psychiatry last week rather than wait as they had discussed. Program psychiatrist agreeable to this which provided pt some relief. Pt went on to note her sx may also be worse this week as she has PMDD. 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 Clarified that her children continue to celebrate with their father and other family, but miss having pt involved. Expressed guilt and loneliness associated with this and does not have plans tomorrow, Thanksgiving, while her children are with family. Therapist provided space for the client to process and express emotions, validated her feelings, normalized her emotional response, and reviewed depression maintenance behaviors with her. Pt and therapist worked to develop a plan for pt during the day tomorrow so that she is not in bed and isolated all day. Pt noted that she could go to her mother?s and they can her [place] neighbors to their family events as a way to give back while also getting out of the house. Risks/Concerns:: Denies suicidal thoughts, does report ambivalence to living earlier this morning. Though denies this was active in nature. Protective factors noted. Progress Toward Goals/Plan:: Client demonstrated regression in symptom management but reported feeling improved following the session, stating, ?I?m glad I came in and didn?t cancel.? She expressed a continued desire to work on her mental health, despite the ?ups and downs? she has been experiencing. Client described frequent medication and physiological triggers that lead to a maladaptive cycle of negative automatic thoughts, hyperfocus on sx, social withdrawal, and fear ?this will be my new normal?. She was able to identify her role in this cycle and verbalized insight into the impact of her behaviors on symptomology. Client expressed motivation for behavioral change and commitment to making continued efforts toward improving mental health sx. Time Stopped:: 09:48
== END 2025-01-17 23:59 ==
LOC: BHIOP 08:35
PROVIDERS: PCP Family Medicine; Referring Provider Student in an Organized Health Care Education/Training Program; Visit Provider Student in an Organized Health Care Education/Training Program
DX: F33.2 Major depressive disorder, recurrent severe without psychotic features (principal); F41.1 Generalized anxiety disorder
CPT/HCPCS: H2012; H2020; S9480; 90832; 90834; 90837

== ENCOUNTER 2025-01-18 08:04 | Outpatient (RCR) | payer MEDICAID, SELFPAY ==
--- NOTE | 2025-01-20 10:20 | BH.MDN ---
Multi-Disciplinary Note Note 60-min Individual: Time Started:: 09:10 Date: 01/20/25 Purpose of session/treatment goals addressed:: To practice distress tolerance and thought challenging skills to help with recent regression. Eye Contact:: Good Motor Activity:: Appropriate Appearance:: Casual Speech:: Appropriate and Rambling Mood:: Anxious and Depressed Affect:: Congruent (tearful ) Thoughts:: Racing, Circular and No evidence of hallucinations/delusions noted Staff Interventions:: thought challenging (taught pt about cognitive diffusion and helped pt utilize dialectical thinking strategies.), CBT techniques, mindfulness skills (started session with 3 minute mindfulness.), discharge planning, strengths perspective and taught coping skills Client Response:: Pt responded well to session, open to meeting with therapist and with doing a brief mindfulness activity. Pt stated it's been so bad and began sobbing. Pt noted that over the past week she feels that she has went backwards and she is currently depressed. Pt stated she is crying uncontrollably, having thoughts of , Pt shared she did go for a walk yesterday and she has used some affirmations, but she is so terrified I'm going to feel this way forever. Pt able to recognize that her common negative thinking patterns when her symptoms are worse are catastrophizing, all or nothing thinking, and disqualifying the positives. Pt noted she feels like a failure to her children which she was quickly able to combat. Pt does well with challenging her perspective with help from therapist. Pt was able to reduce her crying and be more hopeful/balanced in her thinking several times throughout session. Used the metaphor of how tree rings growth and this helped pt be compassionate to herself and setbacks, while also giving herself credit for progress. Pt also does well with leveling the playing field which helps pt not catastrophize and focus on her strengths/skills. Pt also responded well to learning about cognitive diffusion which is a technique used to help pt give thoughts and symptoms less value and gain back control. Pt reports she liked this technique and plans to call her negative thoughts and anxiety Merry. Pt plans to come three days next week and will be seen by psychiatry as pt continues to have medication issues. Risks/Concerns:: Pt is having thoughts of and feeling hopeless. Pt denies any suicidal ideations, plan, or intent. Pt reports she is afraid of dying or hurting herself. No weapons at home. Will continue to monitor. Progress Toward Goals/Plan:: Pt demonstrated regression in symptom management but reported feeling improved following the session, stating, ?I know I can make it through this.? She expressed a continued desire to work on her mental health. Pt described her menstrual cycle/hormone levels, medication changes, and stress with her children have contributed to a vicious cycle of negative thinking a self-doubt. Pt expressed motivation for thought challenging change and commitment to making continued efforts toward improving mental health sx. Pt will continue IOP tx to help pt reduce further regression, increase distress tolerance skills, and improve outlook. Time Stopped:: 10:05
--- NOTE | 2025-01-20 11:10 | BH.SGPN.GN ---
Behaviors/Verbalizations/Mental Status: []Eye contact is good. Motor activity is appropriate. Appearance is casual. Speech is Appropriate. Mood is anxious. Affect is congruent. Thoughts are linear and logical. No evidence of psychosis. Client Response/Progress/Benefit: [] Pt was an active participant and responded well to session AEB input and examples during group activity. Group discussed and practiced methods of reframing cognitive distortions. Pt participated in identifying cognitive distortions when examples were provided. Pt discussed in group the different strategies to overcome the distortions. Pt identified cognitive distortion they use most often which is catastrophizing and pt reports plan to continue working on reframing these thoughts. Pt did well in small group during experiential activity and helped group identify answers. Will continue tx to promote use of healthy coping skills, combat distortions, and increase self-confidence. Narrative Note: []
--- NOTE | 2025-01-21 09:05 | BH.SGPN.GN ---
Behaviors/Verbalizations/Mental Status: [] Eye contact is fair. Motor activity is appropriate. Appearance is casual. Speech is Appropriate. Mood is anxious. Affect is congruent. Thoughts are linear and logical. No evidence of psychosis. Reviewed daily check in sheet and no reports of suicidal ideations Client Response/Progress/Benefit: [] Pt participated at times during the group discussions. Attentive. ? My thoughts are scattered?. Poor sleep last night. ?However I still feel OK?. Shared that she was ? in a low spot? earlier this week which seemingly was the result of isolation and avoidance behaviors. Insight that she is a ?people person? and the negative impact that being alone has on her overall mental health. Progress noted. Benefited from group support, encouragement, and feedback. Will continue in IOP to prevent decompensation, stabilize anxiety, and improve functioning. Narrative Note: []
--- NOTE | 2025-01-21 10:10 | BH.SGPN.GN ---
Behaviors/Verbalizations/Mental Status: [] Eye contact is good. Motor activity is appropriate. Appearance is casual. Speech is Appropriate. Mood is euthymic Affect is congruent. Thoughts are linear and logical. No evidence of psychosis. Client Response/Progress/Benefit: [] Pt was an active participant in group discussion and activity. Attentive during psychoeducation on what it means to take action. Pt identified symptoms that they want to take gain control over which included anxiety and depression Increased insight into what could be holding patient back from mental wellness and the importance of taking action on symptoms and obstacles rather than avoiding or ignoring. Will continue in IOP to maintain gains, prevent decompensation, and increase overall functioning. Narrative Note: []
--- NOTE | 2025-01-21 11:15 | BH.SGPN.GN ---
Behaviors/Verbalizations/Mental Status: [] Pt alert and oriented, neatly dressed and groomed. Eye contact good. Motor activity appropriate. Speech within normal limits. Affect congruent, mood anxious. Thoughts linear, logical, no signs of hallucinations or delusions. Client Response/Progress/Benefit: [] Pt responded well to session, taking notes and participating in worksheet discussion. Pt connected with the discussion on action steps, and this helped pt learn how to set goals differently. Pt set motion and action steps to goal which included ?figuring out schedule for month and not leaving space to isolate and finding groups to join to reduce isolation.? Appeared to benefit from identifying a small goal to benefit mental health. Pt is to continue IOP tx to maintain gains, reduce negative self-talk, and improve daily functioning. Narrative Note: []
--- NOTE | 2025-01-22 13:00 | BH.MDN_ITS ---
Multi-Disciplinary Note Note 60-min Individual: Time Started:: 01:00 Date: 01/22/25 Purpose of session/treatment goals addressed:: Pt called in this AM tearful reporting significant anxiety and panic. She was encouraged to come in and meet with a therapist this afternoon. Eye Contact:: Good Motor Activity:: Restless Appearance:: Casual Speech:: Appropriate Mood:: Anxious Affect:: Other (congruent) Thoughts:: Racing, Circular and No evidence of hallucinations/delusions noted Staff Interventions:: thought challenging, psychoeducation on: (affirmations), CBT techniques, mindfulness skills, taught coping skills and other (pointing out resilency) Client Response:: Patient presented tearful this afternoon, stating, ?It?s just so exhausting dealing with my anxiety.? She endorses persistent racing thoughts and ruminative thinking throughout the day, primarily centered on her medications, a pervasive belief that she will ?never get better,? and numerous catastrophic predictions regarding potential future events. Patient reports she ?woke up with anxiety? and, when prompted for examples of anxious cognitions, described fears of something ?bad? happening to her children while they are driving. She identified no specific precipitating trigger. She elaborated extensively on fears that her son will be involved in a motor vehicle accident because he is a ?daredevil.? Notably, her son will not obtain his local company intermodal truck driver?s license until late April; however, patient perceives this as an imminent crisis. Session focused on cognitive restructuring, specifically differentiating between a stressor and a crisis. Patient verbalized, ?My brain won?t slow down,? and expressed difficulty recognizing any progress in her mental health. Thought content reflects catastrophizing, anticipatory anxiety, and negative self- appraisal. Patient also discussed long-standing perceived adverse reactions to psychotropic medications. She requested discontinuation of Rexulti due to akathisia-like restlessness and heightened anxiety, which was completed by the program psychiatrist two weeks ago. No new medication was initiated; psychiatrist maintained Prozac and slightly increased the dosage. Patient now expresses ambivalence, considering reinstating Rexulti despite prior adverse effects, further increasing Prozac, or trialing a completely new medication. Additionally, patient speculates that nocturnal anxiety may be associated with environmental factors (e.g., white noise generator). Also believes that her intense emotions are related temperamental/biological predispositions, referencing concepts such as high sensitivity and environmental sensitivity which is way medications/intervention are not as effective. Risks/Concerns:: No risks or concerns noted. Denies suicidal thoughts. Progress Toward Goals/Plan:: Patient responded positively to the therapeutic interventions. Demonstrated increased insight and enhanced awareness of progress, acknowledging that contributing factors such as social isolation, ruminative thinking, and catastrophic cognitions may play a more significant role in her anxiety than medication alone. Patient was able to identify a pattern of functioning, noting that she typically experiences 2?3 ?good days? with stable mood and functioning, followed by a ?low day.? She recognized that if medication were the sole determinant, symptom fluctuations would likely be more consistent, which reflects cognitive flexibility and progress in reframing maladaptive beliefs. Patient responded well to cognitive restructuring and challenging distorted thoughts during session. Together, we identified and practiced several coping strategies, positive affirmations, perspective-shifting techniques, and behavioral distractions to implement over the weekend. Notably, patient exhibited a reduction in psychomotor restlessness, decreased tearfulness, and appeared more calm and regulated shortly after the session began. She demonstrates strong engagement and benefits from therapist-assisted skills application, though continues to struggle with independent implementation, suggesting ongoing need for skill generalization and self- efficacy building. Pt is set to meet with psychiatry next week. Time Stopped:: 02:00
--- NOTE | 2025-01-27 11:15 | BH.SGPN.GN ---
Behaviors/Verbalizations/Mental Status: []Client alert and oriented, casually dressed and groomed. Eye contact good. Motor activity appropriate. Speech within normal limits. Affect constricted, mood euthymic and anxious. Thoughts linear, logical, no signs of hallucinations or delusions. Client Response/Progress/Benefit: [] Pt responded well to session, engaged in the experiential activity and attentive throughout group processing. Pt reported fear of failure has kept Pt from believing in herself and her abilities and looking for a job. Pt completed fear of failure worksheet and was able to identify thoughts and behaviors that reinforce personal fear of failure including people pleasing and avoidance. Pt participated in small group discussion regarding strategies to overcome fear of failure. Identified wanting to practice radical acceptance and bazzi thinking. Appeared to benefit from increased knowledge of strategies to combat fear of failure and gaining self-awareness. Pt will continue IOP tx to promote mood stability, increase self-confidence, and improve daily functioning. ? Narrative Note: []
--- NOTE | 2025-01-28 10:38 | BH.MDN ---
Multi-Disciplinary Note Note 45-min Individual: Time Started:: 09:35 Date: 01/28/25 Purpose of session/treatment goals addressed:: To address current stressors and discuss strategies to help cope with these stressors. Another goal was discussing discharge. Eye Contact:: Good Motor Activity:: Appropriate Appearance:: Neat Speech:: Appropriate Mood:: Euthymic Affect:: Full Thoughts:: Linear, Logical and No evidence of hallucinations/delusions noted Staff Interventions:: thought challenging, CBT techniques, mindfulness skills, discharge planning, strengths perspective and other (reviewed coping skills and completed the maintenance plan) Risks/Concerns:: Pt denies any active suicidal ideation, plan, or intent. Pt denies any thoughts of . Time Stopped:: 10:20
--- NOTE | 2025-01-28 10:39 | BH.AFTERPLAN ---
Aftercare Plan Demographics Treatment End Date:: 01/29/25 Psychiatrist:: Brody Bangura Psychiatrist Office #:: [phone] [facility] Therapist:: Naye Ortiz Therapist Phone #:: [phone] Medications Home Medications albuterol sulfate 90 mcg/actuation aerosol inhaler (Ventolin HFA) 1 - 2 puff inhalation Q4H PRN PRN Wheezing ##1 02/21/15 lisinopril 10 mg tablet 10 mg PO DAILY 11/03/23 fluoxetine 20 mg capsule 40 mg PO QPM 11/04/24 amitriptyline 10 mg tablet 10 mg PO QHS 12/04/24 cholecalciferol (vitamin D3) 50 mcg (2,000 unit) capsule (Vitamin D3) 50 mcg PO DAILY 12/04/24 pantoprazole 40 mg tablet,delayed release (Protonix) 40 mg PO DAILY 12/04/24 propranolol 10 mg tablet 10 mg PO BID #60 tabs 12/04/24 alprazolam 0.25 mg tablet 0.25 mg PO BID PRN anxiety 30 days #60 tabs 01/08/25 Plan Details Progress/Aftercare Plan Details:: Pt has responded well to treatment as evidenced by Pt consistently attending IOP sessions and her reduction of DSM-5 scores since admission. Pt was always attentive and receptive to learning during group and individual sessions. Pt actively applied coping skills outside of IOP and reports overall her mood is improved and she is functioning better than she was several months ago. Pt?s overall symptom reduction is 40% since admission with anger decreasing by 50%, depression decreasing by 50%, and anxiety decreasing by 50%. Pt has increased self-compassion and faced many hard things. Most importantly, Pt has become more resilient, flexible, and capable in her abilities Strategies for Success:: 1. Opposite action! Continue to break that cycle of anxiety, guilt, and depression by not letting emotions be the only drivers of your bus. 2. Remember that thoughts are thoughts NOT facts! You have power in if you give thoughts the time of day or not. 3. self-care! You deserve to take time for you and you also deserve to face the not so fun self-care like delegating tasks and advocating for yourself 4. Self-compassion! You are human and you will make a mistake?BUT that doesn?t mean you are a failure or not good enough! 5. Continue to LEVEL THE PLAYING FIELD 6. Practice positive self-talk and keep track of your wins. 7. Remember progress isn?t linear! You may have a setback or bump in the road, but that doesn?t mean you?ve lost all progress. 8. self-reflection and self-awareness. 9. Be understanding with yourself and try to see the whole picture, not just the snapshot. 10. Live in the bazzi!! Appointments Appointments/Referrals to Other Services:: [facility] 2. Noy Jeffries for medication management. 3. IOP aftercare starting on 02/04/25 from 2-3:30pm.
--- NOTE | 2025-01-28 10:42 | BH.DS_ITS ---
Discharge Summary Demographics Date of Admission:: 12/01/24 Discharge Date: 01/29/25 Presenting Problems at Admission:: Pt is a 44-year-old woman with a history of ROBERT and MDD. Pt has one previous psychiatric admission to [facility] from 11/04/24-11/09/24 due to significant anxiety and thoughts of . Pt was referred to [facility] tx due to her worsening anxiety, depression, and functioning. At admission to [facility], pt experienced constant anxiety, poor appetite, low energy, lack of motivation, panic, avoidance, crying spells, worthlessness, hopelessness, and poor sleep. Pt reports her anxiety is so high she is exhausted but I can't turn off my brain to sleep. Pt is not able to complete her ADLs and she is fearful of being at home. Pt's symptoms are impacting her overall functioning and relationships. Discharge Diagnoses:: ROBERT; MDD, recurrent, severe, without psychosis Reason for Discharge:: Pt has met her tx goals AEB her reduction in DMS-5 symptoms and improved functioning compared to the past few months. Pt will co ntinue with outpatient counseling, medication management, and IOP aftercare. Pt no longer meets criteria for [facility] level of care. Treatment Progress During Treatment & Response: Pt has responded well to treatment as evidenced by Pt consistently attending IOP sessions and her reduction of DSM-5 scores since admission. Pt was always attentive and receptive to learning during group and individual sessions. Pt actively applied coping skills outside of IOP and reports overall her mood is improved and she is functioning better than she was several months ago. Pt?s overall symptom reduction is 40% since admission with anger decreasing by 50%, depression decreasing by 50%, and anxiety decreasing by 50%. Pt has increased self-compassion and faced many hard things. Most importantly, Pt has become more resilient, flexible, and capable in her abilities Issues Still to be Addressed:: Anxiety management, distress tolerance skills, self-confidence, thought challenging, and ongoing support with finding a job. Discharge Recommendations/Instructions:: Pt will follow up with her outpatient psychology teacher at [facility] for medication management. Pt has an intake appointment at [facility] on 02/01/25. Pt will begin IOP aftercare group on 02/04/25. Discharge Handout
== END 2025-01-29 08:50 | disposition home or self-care (01) ==
LOC: BHIOP 08:04
PROVIDERS: PCP Family Medicine; Referring Provider Student in an Organized Health Care Education/Training Program; Visit Provider Student in an Organized Health Care Education/Training Program
DX: F33.2 Major depressive disorder, recurrent severe without psychotic features (principal); F41.1 Generalized anxiety disorder
CPT/HCPCS: H2012; H2020; S9480; 90834; 90837

== ENCOUNTER → 2025-02-02 | Outpatient (CLI) | payer MEDICAID, SELFPAY ==
[2025-02-02 16:50] LABS: Hematocrit 41.6 % (37-47); Hemoglobin 13.8 g/dL (12.0-15.0); Immature Granulocytes Count 0.020 X10^3/uL (0.0-0.0); Mean Corp Hgb Conc 33.2 g/dL (32-36); Mean Corpuscular Volume 87.0 fL (81-99); Mean Platelet Vol. 11.8 fl (6.2-12.0); NRBC Flagged by Analyzer 0 % (0-5); Platelet Count 224 K/mm3 (150-450); RBC Distribution Width CV 11.7 % (11.6-14.6); RBC Distribution Width SD 37.4 fl (35.1-43.9); Red Blood Count 4.78 M/mm3 (4.2-5.4); White Blood Count 7.3 K/mm3 (4.4-11.0)
[2025-02-02 17:36] LABS: AST(SGOT) 15 U/L (<=31); Alanine Aminotransfer ALT/SGPT 14 U/L (<=34); Albumin, Serum 4.3 g/dL (3.5-5.0); Alkaline Phosphatase 81 U/L (35-104); Anion Gap 13 (5-15); BUN 9 mg/dL (4-19); BUN/Creat Ratio 14.2 RATIO (10-20); Calcium,Total 9.6 mg/dL (7.6-11.0); Carbon Dioxide 21.5 mmol/L (21.0-32.0); Chloride 103 mmol/L (98-108); Ferritin 392 ng/mL (22-378); Globulin 2.7 g/dL (2.2-4.2); Glucose 176 mg/dL (70-99); Iron 137 ug/dL (50-170); Iron Binding Capacity,Total 325 ug/dL (250-450); Iron Binding Capacity,Unsat 188 ug/dL (228-428); Potassium 4.1 mmol/L (3.3-5.1)
[2025-02-02 18:14] LABS: Cholesterol 193 mg/dL (<=200); Low Density Lipoprotein Calc. 135 mg/dL; Triglycerides 149 mg/dL; Very Low Density Lipoprotein 30 mg/dL (5-40); cholesterol:hdl ratio screen 6.15
== END | disposition home or self-care (01) ==
LOC: VSLAB 11:32
PROVIDERS: PCP Family Medicine; Referring Provider Nurse Practitioner Family; Visit Provider Nurse Practitioner Family
DX: R73.03 Prediabetes (principal); R53.83 Other fatigue; Z13.220 Encounter for screening for lipoid disorders
CPT/HCPCS: 36415; 80053; 80061; 82728; 83036; 83540; 83550; 85025

== ENCOUNTER 2025-02-04 11:38 | Outpatient (RCR) | payer MEDICAID, SELFPAY ==
--- NOTE | 2025-02-04 15:44 | BH.MTP ---
Master Treatment Plan Patient Information Program Physician:: Dr. Brody Bangura Primary Therapist:: Naye LIANG Psychiatric Diagnoses Psychiatric Diagnoses:: ROBERT; MDD, recurrent, severe, without psychosis F 33.2 Diagnosis Code(s):: F33.2 Estimated LOS Estimated LOS (in weeks):: 8 Problem/Goal #1 Problem/Goal #1 Stated Goal:: client will maintain or see a reduction in symptoms AEB client score on the DSM 5 cross-cutting measure and improve client's daily functioning. Objectives Objective #1: Stated Objective: Client will continue to consistently apply healthy coping skills to maintain progress made in IOP tx. Interventions: Through group therapy, client will review warning signs and triggers as well as healthy coping skills learned in IOP tx to successfully maintain gains while transitioning into outpatient therapy. Discharge Criteria: Client will have accomplished this goal when client's score on the DSM-5 cross-cutting measure has maintained or reduced over a 8 week period. Target Date: 04/01/25 Review Date: 03/04/25 Status: open Objective #2: Stated Objective: Client will learn and utilize 2-3 maintenance strategies to prevent decompensation from original IOP DSM-5 scores. Interventions: Through group therapy, client will be provided with education on healthy maintenance behaviors, relapse prevention techniques, and healthy coping strategies. Discharge Criteria: Client will have accomplished this goal when can report using at least 2 maintenance skills to prevent decompensation compared to original IOP DSM-5 scores Target Date: 04/01/25 Review Date: 03/04/25 Status: open
== END 2025-02-17 23:59 ==
LOC: BHOG 11:38
PROVIDERS: PCP Family Medicine; Referring Provider Student in an Organized Health Care Education/Training Program; Visit Provider Student in an Organized Health Care Education/Training Program
DX: F33.2 Major depressive disorder, recurrent severe without psychotic features (principal)
CPT/HCPCS: 90853